=== PATIENT | female | born 1940 | race Caucasian/White ===

== ENCOUNTER → 2017-06-10 | Outpatient (CLI) | payer MEDICARE ==
--- NOTE | 2017-06-10 15:00 | XR ---
EXAMINATION TYPE: XR hand limited LT, XR wrist limited LT DATE OF EXAM: 06/10/2017 CLINICAL HISTORY: Third digit flexion deformity. TECHNIQUE: Frontal, lateral and oblique images of the left hand are obtained. Frontal, lateral and o blique images of the left wrist are obtained. COMPARISON: None. FINDINGS: There is no acute fracture/dislocation evident in the left hand or wrist. There is flexion deformity of the third digit at the interphalangeal joint with soft tissue swelling of the volar asp ect of the distal third digit over the proximal and distal phalanges. Joint space narrowing, subchond ral sclerosis, and few marginal osteophytes are seen at the distal interphalangeal joints and first c arpometacarpal joint. No erosion of the ulnar styloid is present. There is mild generalized osseous d emineralization. IMPRESSION: 1. There is no acute fracture or dislocation in the left hand or wrist. 2. Flexion deformity of the third distal interphalangeal joint. Although this may be degenerative, gi linda the volar soft tissue swelling volar plate injury and possible and MR could be performed for furt her evaluation.
== END | disposition home or self-care (01) ==
LOC: RADXRYALE 14:19
PROVIDERS: ATTEND Internal Medicine
DX: M21.242 Flexion deformity, left finger joints (principal); M79.89 Other specified soft tissue disorders

== ENCOUNTER 2020-01-21 01:09 | Emergency (ER) | payer MEDICARE, OTHER ==
[2020-01-21] MEDS ORDERED: MORPHINE SULFATE 4 MG/ML SYRINGE IM STA (01:46)
--- NOTE | 2020-01-21 01:55 | ED ---
Upper Extremity HPI - General Chief Complaint: Extremity Injury, Upper Stated Complaint: FALL, WRIST INJURY Time Seen by Provider: 01/21/20 01:40 Source: patient Mode of arrival: ambulatory Limitations: no limitations - History of Present Illness Initial Comments: This patient is a 79-year-old woman who presents to be evaluated for a left forearm injury. The patient states that she had been walking outside when she missed a step and fell onto her outstretched arm. She complains of pain and swelling to the distal left forearm. No weakness or numbness of the fingers. The patient denies other injuries except for having she states bruising her left knee. She was able to stand and walk following the fall. The patient didn't have any loss of consciousness. No head or neck pain. No chest, back, abdomen pain MD Complaint: Injury to:: left, forearm Onset/Timin -: hour(s) Other Extremity Injury: Forearm: Left Other Injuries: none Handedness: right Place: outdoors Improves With: immobilization Worsens With: movement of extremity Context: fall Associated Symptoms: denies other symptoms - Related Data Previous Rx's Medication Instructions Recorded Hydrocodone/Acetaminophen [Burnside 1 each PO Q6HR PRN #20 tab 01/21/20 5-325] Ibuprofen [Motrin] 600 mg PO Q8HR PRN #20 tab 01/21/20 traMADol HCl [Ultram] 50 mg PO Q6H PRN #20 tab 01/21/20 Allergies Allergy/AdvReac Type Severity Reaction Status Date / Time amoxicillin [From Augmentin] Allergy Rash/Hives Verified 01/21/20 01:22 clavulanic acid Allergy Rash/Hives Verified 01/21/20 01:22 [From Augmentin] codeine Allergy Cough Verified 01/21/20 01:22 Review of Systems ROS Statement: Those systems with pertinent positive or pertinent negative responses have been documented in the HPI. ROS Other: All systems not noted in ROS Statement are negative. Constitutional: Denies: weakness Eyes: Denies: vision change Respiratory: Denies: cough, dyspnea Cardiovascular: Denies: chest pain Gastrointestinal: Denies: abdominal pain Musculoskeletal: Reports: joint swelling, arthralgia Skin: Denies: lesions Neurological: Denies: headache, weakness, numbness Past Medical History Past Medical History: Cancer, Diabetes Mellitus, Hyperlipidemia, Hypertension Additional Past Medical History / Comment(s): Lung cancer lobectomy right side. History of Any Multi-Drug Resistant Organisms: None Reported Additional Past Surgical History / Comment(s): lobectomy. Past Psychological History: No Psychological Hx Reported Smoking Status: Former smoker Past Alcohol Use History: None Reported Past Drug Use History: None Reported General Exam Limitations: no limitations General appearance: alert, in no apparent distress Head exam: Present: atraumatic, normocephalic Eye exam: Present: normal appearance. Absent: scleral icterus, conjunctival injection Respiratory exam: Present: normal lung sounds bilaterally. Absent: respiratory distress, wheezes, rales, rhonchi, stridor, chest wall tenderness Cardiovascular Exam: Present: regular rate, normal rhythm, normal heart sounds, other (Radial pulses are symmetric and normal in strength. Good capillary refill.). Absent: systolic murmur, diastolic murmur, rubs, gallop GI/Abdominal exam: Present: soft. Absent: distended, tenderness, guarding, rebound Extremities exam: Present: normal inspection, normal capillary refill. Absent: pedal edema, calf tenderness Left Shoulder Exam: Present: normal inspection, full ROM Upper Arm exam: Present: normal inspection, full ROM Elbow exam: Present: normal inspection, full ROM Forearm Wrist exam: Present: tenderness, swelling. Absent: normal inspection, full ROM, abrasion, laceration, ecchymosis Hand Wrist exam: Present: normal inspection, full ROM. Absent: tenderness, swelling, abrasion Vascular: Present: normal capillary refill. Absent: pulse deficit radial art, pulse deficit ulnar art, pulse deficit brachial art Neurological exam: Present: alert. Absent: motor sensory deficit Skin exam: Present: warm, dry, intact, normal color. Absent: rash Course Vital Signs 01/21/20 01:15 Temperature 98 F Pulse Rate 112 H Respiratory 18 Rate Blood Pressure 170/70 O2 Sat by Pulse 100 Oximetry Disposition Clinical Impression: Forearm fractures, both bones, closed Disposition: HOME SELF-CARE Condition: Good Instructions (If sedation given, give patient instructions): Arm Fracture in Adults (ED) Prescriptions: Ibuprofen [Motrin] 600 mg PO Q8HR PRN #20 tab PRN Reason: Pain Hydrocodone/Acetaminophen [Burnside 5-325] 1 each PO Q6HR PRN #20 tab PRN Reason: Pain traMADol HCl [Ultram] 50 mg PO Q6H PRN #20 tab PRN Reason: Pain Is patient prescribed a controlled substance at d/c from ED?: Yes Referrals: Janett Caraballo MD [Primary Care Provider] - 1-2 days Henry Chowdhury DO [Medical Doctor] - 1-2 days
--- NOTE | 2020-01-21 02:21 | XR ---
EXAMINATION TYPE: XR forearm LT DATE OF EXAM: 01/21/2020 COMPARISON: None HISTORY: Fall. Pain. TECHNIQUE: 2 views FINDINGS: There is impacted comminuted fractures of the distal radius and ulna. There is some posteri or displacement of the distal fragments. There is no dislocation at the radiocarpal joint. Fracture l ine extends to the articular surface of the radius. The elbow joint appears intact. IMPRESSION: Impacted and comminuted intra-articular fractures of the distal radius and ulna as above. There is 50% posterior displacement of distal radius major fragment.
[2020-01-21] MEDS ORDERED: traMADol 50 MG STARTER PACK 3 TAB BTL PO STA (04:25)
[2020-01-21 04:46] VITALS: BP 150/70; PULSE 88; RESP 16; TEMP 98.1
== END 2020-01-21 04:46 | disposition home or self-care (01) ==
LOC: EC 01:09
DX: S52.572A Other intraarticular fracture of lower end of left radius, initial encounter for closed fracture (principal); S52.692A Other fracture of lower end of left ulna, initial encounter for closed fracture; Z87.891 Personal history of nicotine dependence; Z88.0 Allergy status to penicillin; Z88.5 Allergy status to narcotic agent; Z88.1 Allergy status to other antibiotic agents; Z85.118 Personal history of other malignant neoplasm of bronchus and lung; Z90.2 Acquired absence of lung [part of]; W10.9XXA Fall (on) (from) unspecified stairs and steps, initial encounter; Y92.009 Unspecified place in unspecified non-institutional (private) residence as the place of occurrence of the external cause
CPT/HCPCS: 73090; 99283; 29125; J2270

== ENCOUNTER → 2020-10-08 | Outpatient (CLI) | payer MEDICARE ==
--- NOTE | 2020-10-08 16:09 | XR ---
This x-ray and left RIBS HISTORY: Pain, trauma one week prior To review the chest and 4 views of left ribs Correlation prior chest x-ray 12/31/2014 Low bone mineralization may limit evaluation. There is no evident pneumothorax or pleural effusion. N o displaced rib fracture is evident. Mediastinal silhouette is stable. Aorta is dense. Surgical clips present in the right upper quadrant. There is thoracic spondylosis. IMPRESSION: No acute abnormality. Bone scan could be performed for increased sensitivity as indicated .
== END | disposition home or self-care (01) ==
LOC: RADXRYALE 14:54
PROVIDERS: ATTEND Internal Medicine
DX: R07.81 Pleurodynia (principal)

== ENCOUNTER 2021-10-11 17:26 | Inpatient (IN) | payer MEDICARE ==
[2021-10-11] MEDS ORDERED: SODIUM CHLORIDE 0.9% 1,000 ML IV STA (18:15)
[2021-10-11] MEDS ORDERED: SODIUM CHLORIDE 0.9% 500 ML 500 ML IV STA ×2 (18:15→20:57)
--- NOTE | 2021-10-11 18:19 | ED ---
SOB HPI - General Source: patient, family, RN notes reviewed, old records reviewed Mode of arrival: ambulatory Limitations: no limitations - History of Present Illness MD Complaint: shortness of breath <Sj Spear - Last Filed: 10/11/21 20:55> <Esau Daniels - Last Filed: 10/11/21 23:22> - General Chief Complaint: Shortness of Breath Stated Complaint: covid+/sent by urgent care Time Seen by Provider: 10/11/21 17:58 - History of Present Illness Initial Comments: 80-year-old female history of lung cancer with resection the right side ammonia other medical problems who presents with complaints of feeling weak for the past week also some diarrhea she states she's had a bit of this. No nausea no vomiting possibly decrease oral intake she states she tested positive for "19 today. She denies any fevers chills sweats other symptoms or modifying factors is generally feels weak and not well. (Sj Spear) - Related Data Home Medications Medication Instructions Recorded Confirmed Alendronate Sodium [Fosamax] 70 mg PO BLOOD 10/11/21 10/11/21 Ergocalciferol (Vitamin D2) 1,250 mcg PO QMONTHLY 10/11/21 10/11/21 [Drisdol (50,000 Iu)] Glimepiride [Amaryl] 1 mg PO Q48H 10/11/21 10/11/21 Losartan Potassium 100 mg PO HS 10/11/21 10/11/21 Pioglitazone [Actos] 45 mg PO DAILY 10/11/21 10/11/21 Simvastatin 40 mg PO DAILY 10/11/21 10/11/21 amLODIPine [Norvasc] 10 mg PO DAILY 10/11/21 10/11/21 Allergies Allergy/AdvReac Type Severity Reaction Status Date / Time amoxicillin [From Augmentin] Allergy Rash/Hives Verified 10/11/21 19:40 clavulanic acid Allergy Rash/Hives Verified 10/11/21 19:40 [From Augmentin] codeine Allergy Cough Verified 10/11/21 19:40 Review of Systems ROS Other: All systems not noted in ROS Statement are negative. <Sj Spear - Last Filed: 10/11/21 20:55> ROS Other: All systems not noted in ROS Statement are negative. <Esau Daniels - Last Filed: 10/11/21 23:22> ROS Statement: Those systems with pertinent positive or pertinent negative responses have been documented in the HPI. Past Medical History Past Medical History: Cancer, Diabetes Mellitus, Hyperlipidemia, Hypertension Additional Past Medical History / Comment(s): Lung cancer lobectomy right side. History of Any Multi-Drug Resistant Organisms: None Reported Additional Past Surgical History / Comment(s): lobectomy. Past Psychological History: No Psychological Hx Reported Smoking Status: Never smoker Past Alcohol Use History: None Reported Past Drug Use History: None Reported <Sj Spear - Last Filed: 10/11/21 20:55> General Exam Limitations: no limitations General appearance: alert, in no apparent distress Head exam: Present: atraumatic, normocephalic, normal inspection Eye exam: Present: normal appearance, PERRL, EOMI. Absent: scleral icterus, conjunctival injection, periorbital swelling ENT exam: Present: mucous membranes dry Neck exam: Present: normal inspection, full ROM, other (No stridor JVD or bruits). Absent: tenderness, meningismus, lymphadenopathy Respiratory exam: Present: normal lung sounds bilaterally. Absent: respiratory distress, wheezes, rales, rhonchi, stridor Cardiovascular Exam: Present: normal rhythm, bradycardia, normal heart sounds. Absent: systolic murmur, diastolic murmur, rubs, gallop, clicks GI/Abdominal exam: Present: soft, normal bowel sounds. Absent: distended, tenderness, guarding, rebound, rigid Extremities exam: Present: normal inspection, full ROM, normal capillary refill. Absent: tenderness, pedal edema, joint swelling, calf tenderness Back exam: Present: normal inspection Neurological exam: Present: alert, oriented X3, CN II-XII intact Psychiatric exam: Present: normal affect, normal mood Skin exam: Present: warm, dry, intact, normal color. Absent: rash <Sj Spear - Last Filed: 10/11/21 20:55> - General Exam Comments Initial Comments: This is a well-developed well-nourished awake alert oriented 3 female (RainerSj) Course <Sj Spear - Last Filed: 10/11/21 20:55> Vital Signs 10/11/21 10/11/21 10/11/21 17:39 19:28 20:09 Temperature 99 F Pulse Rate 58 L 101 H 99 Respiratory 26 H 18 18 Rate Blood Pressure 140/65 122/67 160/112 O2 Sat by Pulse 92 L 93 L 93 L Oximetry 10/11/21 22:29 Temperature Pulse Rate 86 Respiratory 18 Rate Blood Pressure 113/69 O2 Sat by Pulse 92 L Oximetry - Reevaluation(s) Reevaluation #1: 10/11/21 20:55 The patient's care is endorsed to Dr. Daniels at her shift change. CAT scan is pending for elevated d-dimer. (Sj Spear) Medical Decision Making - Lab Data Result diagrams: 10/11/21 19:16 10/11/21 19:16 - EKG Data -: EKG Interpreted by Ne EKG shows normal: sinus rhythm <Sj Spear - Last Filed: 10/11/21 20:55> - Lab Data Result diagrams: 10/11/21 19:16 10/11/21 19:16 <Esau Daniels - Last Filed: 10/11/21 23:22> - Medical Decision Making Receive this patient as a sign out pending the result of computed tomography scan to rule out PE. Dr. Spear has replaced patient's electrolytes. Discussed results with patient who states she would like to go home. She states there is no way she would like to stay in the hospital. She will return should any symptoms worsen should she develop dyspnea or new symptoms. (Esau Daniels) - Lab Data Lab Results 10/11/21 10/11/21 10/11/21 Range/Units 19:16 19:16 19:16 WBC 4.2 (3.8-10.6) k/uL RBC 3.68 L (3.80-5.40) m/uL Hgb 12.2 (11.4-16.0) gm/dL Hct 34.5 (34.0-46.0) % MCV 93.9 (80.0-100.0) fL MCH 33.2 (25.0-35.0) pg MCHC 35.3 (31.0-37.0) g/dL RDW 12.5 (11.5-15.5) % Plt Count 144 L (150-450) k/uL MPV 8.5 Neutrophils % 82 % Lymphocytes % 12 % Monocytes % 5 % Eosinophils % 1 % Basophils % 0 % Neutrophils # 3.4 (1.3-7.7) k/uL Lymphocytes # 0.5 L (1.0-4.8) k/uL Monocytes # 0.2 (0-1.0) k/uL Eosinophils # 0.0 (0-0.7) k/uL Basophils # 0.0 (0-0.2) k/uL PT 10.3 (9.0-12.0) sec INR 0.9 (<1.2) APTT 24.9 (22.0-30.0) sec D-Dimer 2.43 H (<0.60) mg/L FEU Sodium 130 L (137-145) mmol/L Potassium 3.2 L (3.5-5.1) mmol/L Chloride 100 (98-107) mmol/L Carbon Dioxide 20 L (22-30) mmol/L Anion Gap 10 mmol/L BUN 19 H (7-17) mg/dL Creatinine 1.09 H (0.52-1.04) mg/dL Est GFR (CKD-EPI)AfAm 56 (>60 ml/min/1.73 sqM) Est GFR (CKD-EPI)NonAf 49 (>60 ml/min/1.73 sqM) Glucose 138 H (74-99) mg/dL Plasma Lactic Acid Raimundo (0.7-2.0) mmol/L Calcium 8.6 (8.4-10.2) mg/dL Magnesium 1.5 L (1.6-2.3) mg/dL Total Bilirubin 0.6 (0.2-1.3) mg/dL AST 52 H (14-36) U/L ALT 24 (4-34) U/L Alkaline Phosphatase 51 (38-126) U/L Troponin I (0.000-0.034) ng/mL NT-Pro-B Natriuret Pep pg/mL Total Protein 5.8 L (6.3-8.2) g/dL Albumin 3.0 L (3.5-5.0) g/dL 10/11/21 10/11/21 10/11/21 Range/Units 19:16 19:16 19:16 WBC (3.8-10.6) k/uL RBC (3.80-5.40) m/uL Hgb (11.4-16.0) gm/dL Hct (34.0-46.0) % MCV (80.0-100.0) fL MCH (25.0-35.0) pg MCHC (31.0-37.0) g/dL RDW (11.5-15.5) % Plt Count (150-450) k/uL MPV Neutrophils % % Lymphocytes % % Monocytes % % Eosinophils % % Basophils % % Neutrophils # (1.3-7.7) k/uL Lymphocytes # (1.0-4.8) k/uL Monocytes # (0-1.0) k/uL Eosinophils # (0-0.7) k/uL Basophils # (0-0.2) k/uL PT (9.0-12.0) sec INR (<1.2) APTT (22.0-30.0) sec D-Dimer (<0.60) mg/L FEU Sodium (137-145) mmol/L Potassium (3.5-5.1) mmol/L Chloride (98-107) mmol/L Carbon Dioxide (22-30) mmol/L Anion Gap mmol/L BUN (7-17) mg/dL Creatinine (0.52-1.04) mg/dL Est GFR (CKD-EPI)AfAm (>60 ml/min/1.73 sqM) Est GFR (CKD-EPI)NonAf (>60 ml/min/1.73 sqM) Glucose (74-99) mg/dL Plasma Lactic Acid Raimundo 0.9 (0.7-2.0) mmol/L Calcium (8.4-10.2) mg/dL Magnesium (1.6-2.3) mg/dL Total Bilirubin (0.2-1.3) mg/dL AST (14-36) U/L ALT (4-34) U/L Alkaline Phosphatase (38-126) U/L Troponin I 0.020 (0.000-0.034) ng/mL NT-Pro-B Natriuret Pep 944 pg/mL Total Protein (6.3-8.2) g/dL Albumin (3.5-5.0) g/dL - EKG Data EKG Comments: Evidence of sinus and junctional rhythm rate 107 QRS duration 70 QT since QTC 320/427 minimal voltage criteria for LVH (Sj Spear) Disposition <Sj Spear - Last Filed: 10/11/21 20:55> Is patient prescribed a controlled substance at d/c from ED?: No <Esau Daniels - Last Filed: 10/11/21 23:22> Clinical Impression: COVID-19, Hypomagnesemia, Hypokalemia Disposition: HOME SELF-CARE Condition: Fair Instructions (If sedation given, give patient instructions): Coronavirus Disease 2019 (COVID-19) Referrals: Janett Caraballo MD [Primary Care Provider] - 1-2 days
--- NOTE | 2021-10-11 19:20 | XR ---
EXAMINATION TYPE: XR chest 2V DATE OF EXAM: 10/11/2021 COMPARISON: 10/08/2020 HISTORY: Short of breath TECHNIQUE: FINDINGS: There is coarse interstitial infiltrates throughout the lungs. There is slight elevated rig ht diaphragm. There is no heart failure. Heart size is normal. Thoracic aorta is atheromatous. IMPRESSION: There is pulmonary interstitial edema which is mostly new compared to recent exam. This c ould be acute pneumonia or heart failure.
[2021-10-11 19:40] LABS: Basophils % (A) 0 %; Eosinophils % (A) 1 %; HCT 34.5 % (34.0-46.0); HGB 12.2 gm/dL (11.4-16.0); Lymphocytes # (A) 0.5 k/uL (1.0-4.8); Lymphocytes % (A) 12 %; MCH 33.2 pg (25.0-35.0); MCHC 35.3 g/dL (31.0-37.0); MCV 93.9 fL (80.0-100.0); Mean Platelet Volume 8.5; Monocytes # (A) 0.2 k/uL (0-1.0); Monocytes % (A) 5 %; Neutrophils # (A) 3.4 k/uL (1.3-7.7); Neutrophils % (A) 82 %; Platelet Count 144 k/uL (150-450); RBC 3.68 m/uL (3.80-5.40); RDW 12.5 % (11.5-15.5); WBC 4.2 k/uL (3.8-10.6)
[2021-10-11 19:54] LABS: Calcium 8.6 mg/dL (8.4-10.2); Magnesium 1.5 mg/dL (1.6-2.3); Potassium 3.2 mmol/L (3.5-5.1); Total Bilirubin 0.6 mg/dL (0.2-1.3); Total Protein 5.8 g/dL (6.3-8.2)
[2021-10-11 20:09] LABS: INR 0.9 (<1.2); Partial Thromboplastin Time 24.9 sec (22.0-30.0); Prothrombin Time 10.3 sec (9.0-12.0)
[2021-10-11] MEDS ORDERED: MAGNESIUM SULFATE-D5W PMX 1 GM in DEXTROSE/WATER 1 100ML.BAG IVPB ONE (20:50)
[2021-10-11] MEDS ORDERED: POTASSIUM CHLORIDE ER 20 MEQ TAB.ER PO STA (20:50)
--- NOTE | 2021-10-11 21:42 | CT ---
EXAMINATION TYPE: CT angio chest DATE OF EXAM: 10/11/2021 COMPARISON: None HISTORY: SOB positive Covid Elevated ddimer. CT DLP: 238.8 mGycm Automated exposure control for dose reduction was used. CONTRAST: Performed with IV Contrast, patient injected with 65 mL of Isovue 370. Images obtained from the thoracic inlet to the diaphragm without IV contrast. There are Three-D postp rocessed images. There is patchy interstitial groundglass infiltrate throughout the lungs. There are a few mediastinal and bronchial lymph nodes up to 1.5 cm. There is normal contrast opacification of the pulmonary nadine mary. There are no filling defects. Thoracic aorta is intact. There is no aneurysm or dissection. Hea rt size is normal. There is no pericardial effusion. There is mild spurring in the thoracic spine. Sternum is intact. There is no compression fracture. IMPRESSION: No evidence of pulmonary embolism. Extensive groundglass interstitial pulmonary infiltrates consisten t with multifocal pneumonia.
[2021-10-12] MEDS ORDERED: IBUPROFEN 400 MG TAB PO PRN (00:41)
[2021-10-12] MEDS ORDERED: NALOXONE 0.4 MG/ML 1 ML VIAL IV PRN (00:41)
[2021-10-12] MEDS ORDERED: MORPHINE SULFATE 4 MG/ML SYRINGE IV STA (00:43)
[2021-10-12] MEDS ORDERED: dexAMETHasone 2 MG TAB PO STA (00:44)
[2021-10-12] MEDS: SODIUM CHLORIDE 0.9% 1,000 ML IV SCH ×2 (00:56→12:11)
[2021-10-12] MEDS: dexAMETHasone 2 MG TAB PO SCH ×2 (00:57→12:10)
[2021-10-12] MEDS: ENOXAPARIN 80 MG/0.8 ML SYRINGE SQ SCH ×2 (01:05→12:09)
[2021-10-12 03:57] LABS: Glucose,Whole Blood 176 mg/dL (75-99)
[2021-10-12 07:02] LABS: Glucose,Whole Blood 219 mg/dL (75-99)
[2021-10-12] MEDS ORDERED: FAMOTIDINE 20 MG TAB PO SCH (09:00)
[2021-10-12] MEDS: INSULIN ASPART (NovoLOG) 100 UNIT/ML VIAL SQ SCH ×4 (09:14→20:54)
[2021-10-12] MEDS: CHOLECALCIFEROL 125 MCG (5000 IU) TABLET PO SCH (09:15)
[2021-10-12] MEDS ORDERED: POTASSIUM CHLORIDE ER 20 MEQ TAB.ER PO STA (10:04)
[2021-10-12] MEDS ORDERED: NON FORMULARY DRUG (Alendronate Sodium [Fosamax] 70 MG Tablet) PO SCH (10:15)
[2021-10-12] MEDS ORDERED: ERGOCALCIFEROL 1,250 MCG (50,000 IU) CAPSULE PO SCH (10:15)
[2021-10-12 11:18] LABS: Glucose,Whole Blood 189 mg/dL (75-99)
[2021-10-12] MEDS: MAGNESIUM SULFATE-D5W PMX 1 GM in DEXTROSE/WATER 1 100ML.BAG IVPB SCH ×2 (12:09→14:54)
[2021-10-12] MEDS: CHOLECALCIFEROL 10 MCG (400 IU) TABLET PO SCH (12:11)
[2021-10-12] MEDS: ZINC SULFATE 220 MG CAP PO SCH (12:11)
[2021-10-12] MEDS: ASCORBIC ACID 500 MG TAB PO SCH ×2 (12:11→20:55)
[2021-10-12] MEDS ORDERED: FUROSEMIDE 10 MG/ML 4 ML VIAL IV STA (13:20)
--- NOTE | 2021-10-12 13:34 | P.HPIM ---
History of Present Illness Patient is 80-year-old the female came in with compensative shortness of breath was diagnosed with Covid 19 today. Patient's symptoms started about a week ago cough shortness of breath. Patient doesn't have any fever. Patient is also bit hyponatremic secondary to hyponatremia, patient denied any nausea vomiting diarrhea patient is not vaccinated for Covid 19.. Patient has an elevated d- dimer had a CT angios the chest which did not show any pulmonary embolism but did show diffuse infiltrates consistent with Covid 19. Patient is presently on a liters of oxygen. REVIEW OF SYSTEMS: CONSTITUTIONAL: No fever, no malaise, no fatigue. HEENT: No recent visual problems or hearing problems. Denied any sore throat. CARDIOVASCULAR: No chest pain, orthopnea, PND, no palpitations, no syncope. PULMONARY as mentioned in HPI GASTROINTESTINAL: No diarrhea, no nausea, no vomiting, no abdominal pain. NEUROLOGICAL: No headaches, no weakness, no numbness. HEMATOLOGICAL: Denies any bleeding or petechiae. GENITOURINARY: Denies any burning micturition, frequency, or urgency. MUSCULOSKELETAL/RHEUMATOLOGICAL: Denies any joint pain, swelling, or any muscle pain. ENDOCRINE: Denies any polyuria or polydipsia. The rest of the 14-point review of systems is negative. PHYSICAL EXAMINATION: GENERAL: The patient is alert and oriented x3, not in any acute distress. Well developed, well nourished. HEENT: Pupils are round and equally reacting to light. EOMI. No scleral icterus. No conjunctival pallor. Normocephalic, atraumatic. No pharyngeal erythema. No thyromegaly. CARDIOVASCULAR: S1 and S2 present. No murmurs, rubs, or gallops. PULMONARY: Chest is clear to auscultation, no wheezing or crackles. ABDOMEN: Soft, nontender, nondistended, normoactive bowel sounds. No palpable organomegaly. MUSCULOSKELETAL: No joint swelling or deformity. EXTREMITIES: No cyanosis, clubbing, or pedal edema. NEUROLOGICAL: Gross neurological examination did not reveal any focal deficits. SKIN: No rashes. Assessment and plan -Acute hypoxic respiratory failure secondary to Covid 19. Patient was started on Decadron will not qualify for Remdesivir, patient will be continued on code vitamins Lovenox twice a day considering elevated d-dimer in spite of no PE. -Type 2 diabetes mellitus blood sugars are expected to go patient was instructed along with the her home regimen. Hypovolemic hyponatremia: Patient was started on IV fluids -Hypomagnesemia and hypokalemia will be replaced -Hypertension DVT prophylaxis: Lovenox as mentioned above Past Medical History Past Medical History: Cancer, Diabetes Mellitus, Hyperlipidemia, Hypertension, Osteoarthritis (OA), Renal Disease Additional Past Medical History / Comment(s): Lung cancer lobectomy right side; CKD History of Any Multi-Drug Resistant Organisms: None Reported Additional Past Surgical History / Comment(s): lobectomy. Past Anesthesia/Blood Transfusion Reactions: No Reported Reaction Smoking Status: Former smoker Medications and Allergies Home Medications Medication Instructions Recorded Confirmed Type Alendronate Sodium [Fosamax] 70 mg PO BLOOD 10/11/21 10/11/21 History Ergocalciferol (Vitamin D2) 1,250 mcg PO QMONTHLY 10/11/21 10/11/21 History [Drisdol (50,000 Iu)] Glimepiride [Amaryl] 1 mg PO Q48H 10/11/21 10/11/21 History Losartan Potassium 100 mg PO HS 10/11/21 10/11/21 History Pioglitazone [Actos] 45 mg PO DAILY 10/11/21 10/11/21 History Simvastatin 40 mg PO DAILY 10/11/21 10/11/21 History amLODIPine [Norvasc] 10 mg PO DAILY 10/11/21 10/11/21 History Allergies Allergy/AdvReac Type Severity Reaction Status Date / Time amoxicillin [From Augmentin] Allergy Rash/Hives Verified 10/11/21 19:40 clavulanic acid Allergy Rash/Hives Verified 10/11/21 19:40 [From Augmentin] codeine Allergy Cough Verified 10/11/21 19:40 Physical Exam Vitals: Vital Signs Temp Pulse Pulse Resp BP BP Pulse Ox 10/12/21 08:43 98.1 F 47 L 18 145/66 91 L 10/12/21 05:42 98.2 F 63 20 134/62 91 L 10/12/21 04:20 90 20 10/12/21 02:16 98.7 F 90 20 133/59 96 10/12/21 01:07 101 H 18 132/74 92 L 10/11/21 22:29 86 18 113/69 92 L 10/11/21 20:09 99 18 160/112 93 L 10/11/21 19:28 101 H 18 122/67 93 L 10/11/21 17:39 99 F 58 L 26 H 140/65 92 L Intake and Output 10/11/21 10/12/21 10/12/21 22:59 06:59 14:59 Other: Voiding Method Bedside Commode Bedside Commode # Voids 2 Weight 77.111 kg 77.111 kg 77.111 kg Results CBC & Chem 7: 10/11/21 19:16 10/11/21 19:16 Labs: Abnormal Lab Results - Last 24 Hours (Table) 10/11/21 10/11/21 10/11/21 Range/Units 19:16 19:16 19:16 RBC 3.68 L (3.80-5.40) m/uL Plt Count 144 L (150-450) k/uL Lymphocytes # 0.5 L (1.0-4.8) k/uL D-Dimer 2.43 H (<0.60) mg/L FEU Sodium 130 L (137-145) mmol/L Potassium 3.2 L (3.5-5.1) mmol/L Carbon Dioxide 20 L (22-30) mmol/L BUN 19 H (7-17) mg/dL Creatinine 1.09 H (0.52-1.04) mg/dL Glucose 138 H (74-99) mg/dL POC Glucose (mg/dL) (75-99) mg/dL Magnesium 1.5 L (1.6-2.3) mg/dL AST 52 H (14-36) U/L Total Protein 5.8 L (6.3-8.2) g/dL Albumin 3.0 L (3.5-5.0) g/dL 10/12/21 10/12/21 10/12/21 Range/Units 03:37 07:00 11:12 RBC (3.80-5.40) m/uL Plt Count (150-450) k/uL Lymphocytes # (1.0-4.8) k/uL D-Dimer (<0.60) mg/L FEU Sodium (137-145) mmol/L Potassium (3.5-5.1) mmol/L Carbon Dioxide (22-30) mmol/L BUN (7-17) mg/dL Creatinine (0.52-1.04) mg/dL Glucose (74-99) mg/dL POC Glucose (mg/dL) 176 H 219 H 189 H (75-99) mg/dL Magnesium (1.6-2.3) mg/dL AST (14-36) U/L Total Protein (6.3-8.2) g/dL Albumin (3.5-5.0) g/dL Thrombosis Risk Factor Assmnt - Choose All That Apply Each Risk Factor Represents 3 Points: Age 75 years or older Thrombosis Risk Factor Assessment Total Risk Factor Score: 3 Thrombosis Risk Factor Assessment Level: Moderate Risk
[2021-10-12] MEDS: ACETAMINOPHEN TAB 325 MG TAB PO PRN ×2 (15:25→20:55)
--- NOTE | 2021-10-12 15:48 | P.CNPUL ---
History of Present Illness Consult date: 10/12/21 Requesting physician: Dianne Robertson Reason for consult: dyspnea, hypoxemia, pneumonia (Dyspnea, cough, hypoxia), abnormal CXR/CT Chief complaint: Dyspnea, cough History of present illness: This is a 81-year-old white female patient of Dr. Janett Caraballo, with past medical history of non-small cell lung cancer, with right upper lobectomy 5 years ago at the [facility] and [facility] which was done by Dr. Salvador, previous history of smoking which has been in remission for last 12 years, but patient does carry [id number] smoking history, hypertension, diabetes mellitus type 2, hyperlipidemia. Patient presented to the emergency department on 10/11/2021 for evaluation of weakness for the past 2 weeks, cough, diarrhea, she denied shortness of breath. She reported no nausea or vomiting, she reported decreased oral intake. She denied any fever or chills. She is not vaccinated against COVID-19, she states she lives by herself and she is not aware of a COVID-19 positive contact. Her chest x-ray showed pulmonary interstitial edema. Patient tested positive for COVID-19 in the ER, the rest of her blood work revealed white blood cell count of 4.2, hemoglobin of 12.2, d- dimer of 2.43, sodium of 1:30, potassium is 3.2, chloride is 100, CO2 is 20, BUN of 19 creatinine 1.09, lactic acid was 0.9, AST was 52, ALT was 24, alk phos was 51, troponin was 0.020, proBNP was 944. CT angiogram was completed showing no evidence of pulmonary embolism, he did show extensive groundglass interstitial pulmonary infiltrates consistent with multifocal pneumonia. EKG showed sinus rhythm with PACs. Patient was hypoxic in the ED, and she was placed on supplemental oxygen, currently is up to 8 L her pulse ox is 92%, she is afebrile, hemodynamically she is stable, she was started on Decadron, prophylactic Lovenox 40 mg twice daily, she was given IV fluid boluses in the ED with a 1 L, and her IV fluids were infusing at 130 ML per hour, on clinical exam she appears to be fluid overloaded, with diffuse crackles, and chest x-ray findings are also suggesting possibility of fluid overload and CHF with unknown EF. Review of Systems All systems: negative Constitutional: Reports anorexia, Reports weakness, Denies chills, Denies fever Eyes: denies blurred vision, denies pain Ears, nose, mouth and throat: Denies headache, Denies sore throat Cardiovascular: Denies chest pain, Denies shortness of breath Respiratory: Reports cough, Reports dyspnea Gastrointestinal: Denies abdominal pain, Denies diarrhea, Denies nausea, Denies vomiting Genitourinary: Denies dysuria, Denies hematuria Musculoskeletal: Denies myalgias Integumentary: Denies pruritus, Denies rash Neurological: Denies numbness, Denies weakness Psychiatric: Denies anxiety, Denies depression Endocrine: Denies fatigue, Denies weight change Past Medical History Past Medical History: Cancer, Diabetes Mellitus, Hyperlipidemia, Hypertension, Osteoarthritis (OA), Renal Disease Additional Past Medical History / Comment(s): Lung cancer lobectomy right side; CKD History of Any Multi-Drug Resistant Organisms: None Reported Additional Past Surgical History / Comment(s): lobectomy. Past Anesthesia/Blood Transfusion Reactions: No Reported Reaction Smoking Status: Former smoker Medications and Allergies Home Medications Medication Instructions Recorded Confirmed Type Alendronate Sodium [Fosamax] 70 mg PO BLOOD 10/11/21 10/11/21 History Ergocalciferol (Vitamin D2) 1,250 mcg PO QMONTHLY 10/11/21 10/11/21 History [Drisdol (50,000 Iu)] Glimepiride [Amaryl] 1 mg PO Q48H 10/11/21 10/11/21 History Losartan Potassium 100 mg PO HS 10/11/21 10/11/21 History Pioglitazone [Actos] 45 mg PO DAILY 10/11/21 10/11/21 History Simvastatin 40 mg PO DAILY 10/11/21 10/11/21 History amLODIPine [Norvasc] 10 mg PO DAILY 10/11/21 10/11/21 History Allergies Allergy/AdvReac Type Severity Reaction Status Date / Time amoxicillin [From Augmentin] Allergy Rash/Hives Verified 10/11/21 19:40 clavulanic acid Allergy Rash/Hives Verified 10/11/21 19:40 [From Augmentin] codeine Allergy Cough Verified 10/11/21 19:40 Physical Exam Vitals: Vital Signs Temp Pulse Pulse Resp BP BP Pulse Ox 10/12/21 13:46 97.2 F L 60 18 149/88 92 L 10/12/21 08:43 98.1 F 47 L 18 145/66 91 L 10/12/21 05:42 98.2 F 63 20 134/62 91 L 10/12/21 04:20 90 20 10/12/21 02:16 98.7 F 90 20 133/59 96 10/12/21 01:07 101 H 18 132/74 92 L 10/11/21 22:29 86 18 113/69 92 L 10/11/21 20:09 99 18 160/112 93 L 10/11/21 19:28 101 H 18 122/67 93 L 10/11/21 17:39 99 F 58 L 26 H 140/65 92 L Intake and Output 10/12/21 10/12/21 10/12/21 06:59 14:59 22:59 Other: Voiding Method Bedside Commode Bedside Commode # Voids 2 Weight 77.111 kg 77.111 kg GENERAL EXAM: Alert, pleasant, 81-year-old white female, comfortable in no apparent distress. HEAD: Normocephalic/atraumatic. EYES: Normal reaction of pupils, equal size. Conjunctiva pink, sclera white. NOSE: Clear with pink turbinates. THROAT: No erythema or exudates. NECK: No masses, no JVD, no thyroid enlargement, no adenopathy. CHEST: No chest wall deformity. Symmetrical expansion. LUNGS: Equal air entry with diffuse crackles CVS: Regular rate and rhythm, normal S1 and S2, no gallops, no murmurs, no rubs ABDOMEN: Soft, nontender. No hepatosplenomegaly, normal bowel sounds, no guarding or rigidity. EXTREMITIES: No clubbing, swelling in upper and lower extremities no cyanosis, 2+ pulses and upper and lower extremities. MUSCULOSKELETAL: Muscle strength and tone normal. SPINE: No scoliosis or deformity SKIN: No rashes CENTRAL NERVOUS SYSTEM: Alert and oriented -3. No focal deficits, tone is normal in all 4 extremities. PSYCHIATRIC: Alert and oriented -3. Appropriate affect. Intact judgment and insight. Results - Laboratory Findings CBC and BMP: 10/11/21 19:16 10/11/21 19:16 PT/INR, D-dimer PT 10.3 sec (9.0-12.0) 10/11/21 19:16 INR 0.9 (<1.2) 10/11/21 19:16 D-Dimer 2.43 mg/L FEU (<0.60) H 10/11/21 19:16 Abnormal lab findings: Abnormal Labs 10/11/21 10/11/21 10/11/21 19:16 19:16 19:16 RBC 3.68 L Plt Count 144 L Lymphocytes # 0.5 L D-Dimer 2.43 H Sodium 130 L Potassium 3.2 L Carbon Dioxide 20 L BUN 19 H Creatinine 1.09 H Glucose 138 H POC Glucose (mg/dL) Magnesium 1.5 L AST 52 H Total Protein 5.8 L Albumin 3.0 L 10/12/21 10/12/21 10/12/21 03:37 07:00 11:12 RBC Plt Count Lymphocytes # D-Dimer Sodium Potassium Carbon Dioxide BUN Creatinine Glucose POC Glucose (mg/dL) 176 H 219 H 189 H Magnesium AST Total Protein Albumin - Diagnostic Findings Chest x-ray: report reviewed, image reviewed CT scan - chest: report reviewed, image reviewed Assessment and Plan Plan: Assessment: #1. Acute hypoxic respiratory failure related to acute COVID-19 related pneumonia and possibility of fluid overload, mild CHF is not completely excluded. Patient presented to the emergency department on 10/11/2021 with 2 week history of weakness, minor fevers, cough but no shortness of breath. Tested positive for COVID-19 in the ED on 10/11/2021. She was outside the window for Remdesivir due to length of symptoms. Did not receive outpatient treatment, she is not vaccinated against COVID-19 #2. History of non-small cell lung cancer, with reported history of right upper lobectomy at the [facility] and [place], [place] in in 2016 #3. Former smoker, carries [id number] smoking history, in remission for last 12 years #4. Hypertension #5. Diabetes mellitus type 2 #6. Hyperlipidemia #7. Hyponatremia related to poor oral intake and dehydration #8. Elevated d-dimer without CT evidence of pulmonary embolism Plan: Patient is outside the window for Remdesivir Continue Decadron once daily Continue prophylactic Lovenox Chest x-ray CTA chest has been reviewed Labs have been reviewed We'll obtain follow-up d-dimer, and inflammatory markers Clinically patient looks fluid overloaded, we will give one-time dose of Lasix Continue multivitamins May need to inquire about patient's history of lung cancer and with her recent follow-up was with her thoracic surgeon For now continue supportive treatment Overall prognosis is guarded I performed a history & physical examination of the patient and discussed their management with my nurse practitioner, Corrie Baca. I reviewed the nurse practitioner's note and agree with the documented findings and plan of care. Lung sounds are positive for diffuse crackles throughout the lung ross. The findings and the impression was discussed with the patient. I attest to the documentation by the nurse practitioner. Time with Patient: Greater than 30
[2021-10-12 16:37] LABS: Glucose,Whole Blood 250 mg/dL (75-99)
--- NOTE | 2021-10-12 20:11 | US ---
EXAMINATION TYPE: US venous doppler duplex LE DATE OF EXAM: 10/12/2021 7:30 PM COMPARISON: CLINICAL HISTORY: elevated d-dimer. Covid, elevated ddimer, no redness or swelling SIDE PERFORMED: Bilateral TECHNIQUE: The lower extremity deep venous system is examined utilizing real time linear array sonog tashi with graded compression, doppler sonography and color-flow sonography. VESSELS IMAGED: Common Femoral Vein Deep Femoral Vein Greater Saphenous Vein * Femoral Vein Popliteal Vein Small Saphenous Vein * Proximal Calf Veins (* superficial vessels) Right Leg: Negative for DVT Left Leg: Negative for DVT IMPRESSION: No evidence of deep vein thrombosis in both legs.
[2021-10-12 20:19] LABS: Glucose,Whole Blood 273 mg/dL (75-99)
[2021-10-12] MEDS: LOSARTAN 50 MG TAB PO SCH (20:55)
[2021-10-12] MEDS: ENOXAPARIN 40 MG/0.4 ML SYRINGE SQ SCH (20:55)
[2021-10-13] MEDS: SODIUM CHLORIDE 0.9% 1,000 ML IV SCH (00:58)
[2021-10-13] MEDS: dexAMETHasone 2 MG TAB PO SCH ×2 (00:58→12:36)
--- NOTE | 2021-10-13 06:39 | XR ---
EXAMINATION TYPE: XR chest 1V portable DATE OF EXAM: 10/13/2021 CLINICAL HISTORY: Difficulty breathing and COVID progress study. TECHNIQUE: Single AP portable upright view of the chest is obtained. COMPARISON: Chest x-ray and CTA chest from 2 days earlier FINDINGS: Increasing bilateral multifocal and confluent opacities redemonstrated on background chron ic emphysematous change. Mild cardiomegaly with atherosclerotic thoracic aorta is present. Cholecyste ctomy clips are redemonstrated. Osseous structures are demineralized. IMPRESSION: Worsening bilateral multifocal and confluent opacities consistent with covid-19 infection progression.
[2021-10-13 06:59] LABS: Glucose,Whole Blood 287 mg/dL (75-99)
[2021-10-13] MEDS: ENOXAPARIN 40 MG/0.4 ML SYRINGE SQ SCH (08:33)
[2021-10-13] MEDS: amLODIPine 10 MG TAB PO SCH (08:33)
[2021-10-13] MEDS: ZINC SULFATE 220 MG CAP PO SCH (08:33)
[2021-10-13] MEDS: FAMOTIDINE 20 MG TAB PO SCH (08:34)
[2021-10-13] MEDS: ATORVASTATIN 20 MG TAB PO SCH (08:34)
[2021-10-13] MEDS: ASCORBIC ACID 500 MG TAB PO SCH ×2 (08:34→20:11)
[2021-10-13] MEDS: CHOLECALCIFEROL 125 MCG (5000 IU) TABLET PO SCH (08:35)
[2021-10-13] MEDS: CHOLECALCIFEROL 10 MCG (400 IU) TABLET PO SCH (08:35)
[2021-10-13] MEDS: GLIMEPIRIDE 1 MG TAB PO SCH (08:35)
[2021-10-13] MEDS: INSULIN ASPART (NovoLOG) 100 UNIT/ML VIAL SQ SCH ×4 (08:36→20:12)
[2021-10-13] MEDS: ACETAMINOPHEN TAB 325 MG TAB PO PRN ×2 (08:51→18:08)
[2021-10-13] MEDS ORDERED: ENOXAPARIN 40 MG/0.4 ML SYRINGE SQ SCH (09:00)
[2021-10-13 09:51] LABS: African American GFR (CKD) 62.1 (60.0-200.0); BUN/Creat Ratio 16.9 Ratio (12.00-20.00); Blood Urea Nitrogen 16.9 mg/dL (9.0-27.0); C Reactive Protein 4.3 mg/dL (0.00-0.80); Calcium 7.9 mg/dL (8.7-10.3); Non-African American GFR(CKD) 53.5 (60.0-200.0)
[2021-10-13 11:36] LABS: Glucose,Whole Blood 250 mg/dL (75-99)
[2021-10-13] MEDS: ALPRAZolam 0.25 MG TAB PO PRN ×2 (12:36→21:21)
[2021-10-13] MEDS: PIOGLITAZONE 45 MG TAB PO SCH (13:38)
--- NOTE | 2021-10-13 15:36 | P.PN ---
Subjective Progress Note Date: 10/13/21 Principal diagnosis: Respiratory failure. This is a 81-year-old white female patient of Dr. Janett Caraballo, with past medical history of non-small cell lung cancer, with right upper lobectomy 5 years ago at the [facility] and [facility] which was done by Dr. Salvador, previous history of smoking which has been in remission for last 12 years, but patient does carry [id number] smoking history, hypertension, diabetes mellitus type 2, hyperlipidemia. Patient presented to the emergency department on 10/11/2021 for evaluation of weakness for the past 2 weeks, cough, diarrhea, she denied shortness of breath. She reported no nausea or vomiting, she reported decreased oral intake. She denied any fever or chills. She is not vaccinated against COVID-19, she states she lives by herself and she is not aware of a COVID-19 positive contact. Her chest x-ray showed pulmonary interstitial edema. Patient tested positive for COVID-19 in the ER, the rest of her blood work revealed white blood cell count of 4.2, hemoglobin of 12.2, d- dimer of 2.43, sodium of 1:30, potassium is 3.2, chloride is 100, CO2 is 20, BUN of 19 creatinine 1.09, lactic acid was 0.9, AST was 52, ALT was 24, alk phos was 51, troponin was 0.020, proBNP was 944. CT angiogram was completed showing no evidence of pulmonary embolism, he did show extensive groundglass interstitial pulmonary infiltrates consistent with multifocal pneumonia. EKG showed sinus rhythm with PACs. Patient was hypoxic in the ED, and she was placed on supplemental oxygen, currently is up to 8 L her pulse ox is 92%, she is afebrile, hemodynamically she is stable, she was started on Decadron, prophylactic Lovenox 40 mg twice daily, she was given IV fluid boluses in the ED with a 1 L, and her IV fluids were infusing at 130 ML per hour, on clinical exam she appears to be fluid overloaded, with diffuse crackles, and chest x-ray findings are also suggesting possibility of fluid overload and CHF with unknown EF. Progress note dated 03/13/2022. This is a 81-year-old female admitted with a diagnosis of acute hypoxemic respiratory failure secondary to coronavirus associated pneumonia. The patient also has a history of non-small cell lung cancer, status post right upper lobectomy, 2016, previous tobacco use, hypertension, diabetes, hyperlipidemia, hyponatremia, and elevated d-dimer without CT evidence of pulmonary embolism. Unfortunately, her respiratory status has worsened although she states that she feels better. She's currently on 15 L high flow nasal O2, and a nonrebreather mask. She is a DO NOT RESUSCITATE patient. She is seen in room 484. She's getting saline at KVO. D-dimer was 1.46. Sodium 134, potassium 5, chlorides 106, CO2 15, anion gap 13, BUN 17, creatinine 1. C-reactive protein is 4.3. LDH is 775. Chest x-ray shows diffuse bilateral infiltrates. CT angiogram and Doppler studies of the lower extremities were also evaluated. The patient was seen in consultation yesterday, October 12. Objective - Vital Signs Vital signs: Vital Signs Temp 96.7 F L 10/13/21 13:33 Pulse 89 10/13/21 13:33 Resp 18 10/13/21 13:33 BP 147/71 10/13/21 13:33 Pulse Ox 97 10/13/21 13:33 Intake & Output 10/12/21 10/13/21 10/13/21 18:59 06:59 18:59 Weight 77.111 kg Other: Voiding Method Bedside Commode Bedside Commode # Voids 10 8 - Exam No acute distress, oriented 3. Currently, the patient's on 15 L high flow nasal O2, and a nonrebreather mass. Saturations are 97%. HEENT examination is grossly unremarkable. Neck supple. Full range of motion. No adenopathy thyromegaly or neck vein distention. Cardiovascular examination reveals regular rhythm rate. S1-S2 normal. No S3 or S4. No discernible murmur noted. Heart sounds are distant. Heart rate 89 bpm. Lungs reveal diffuse bilateral rhonchi and bilateral crackles. No wheezes. Breath sounds equal bilaterally. Abdomen soft bowel sounds are heard. No masses or tenderness. Extremities are intact. No cyanosis clubbing or edema. Skin is without rash or lesion. Neurologic examination is brief but nonfocal. - Labs CBC & Chem 7: 10/11/21 19:16 10/13/21 05:15 Labs: Abnormal Lab Results - Last 24 Hours (Table) 10/12/21 10/12/21 10/13/21 Range/Units 16:34 20:17 05:15 D-Dimer 1.46 H (<0.60) mg/L FEU Sodium (135-145) mmol/L Carbon Dioxide (20.0-27.5) mmol/L Est GFR (CKD-EPI)NonAf (60.0-200.0) Glucose (70-110) mg/dL POC Glucose (mg/dL) 250 H 273 H (75-99) mg/dL Calcium (8.7-10.3) mg/dL Lactate Dehydrogenase (120-246) U/L C-Reactive Protein (0.00-0.80) mg/dL 10/13/21 10/13/21 10/13/21 Range/Units 05:15 06:48 11:34 D-Dimer (<0.60) mg/L FEU Sodium 134 L (135-145) mmol/L Carbon Dioxide 15.0 L (20.0-27.5) mmol/L Est GFR (CKD-EPI)NonAf 53.5 L (60.0-200.0) Glucose 263 H (70-110) mg/dL POC Glucose (mg/dL) 287 H 250 H (75-99) mg/dL Calcium 7.9 L (8.7-10.3) mg/dL Lactate Dehydrogenase 775 H (120-246) U/L C-Reactive Protein 4.30 H (0.00-0.80) mg/dL Microbiology - Last 24 Hours (Table) 10/11/21 19:07 Blood Culture - Preliminary Blood No Growth after 24 hours 10/11/21 19:16 Blood Culture - Preliminary Blood No Growth after 24 hours Assessment and Plan Assessment: Acute hypoxemic respiratory failure secondary to coronavirus associated pneumonia. History of non-small cell lung cancer, status post right upper lobectomy, 2016. Previous history of 20 years of tobacco use. History of hypertension. Type 2 diabetes mellitus. History of hyperlipidemia. Hyponatremia, secondary to dehydration. No evidence of pulmonary embolism or lower extremity DVTs, on CT angiogram/lower extremity Dopplers. Plan: Plan dated 10/13/2021. Currently, the patient is a DO NOT RESUSCITATE patient. Today, we talked about AIRVO, and BiPAP with the patient. The nurse was at the bedside. The patient would not want to be intubated and mechanically ventilated. Currently, the patient's on vitamin C, vitamin D3, and zinc. In addition, the patient is receiving Decadron, daily, and Lovenox. Additional recommendations and suggestions are forthcoming. Prognosis is guarded. We will continue to follow make recommendations where appropriate. Time with Patient: Less than 30
[2021-10-13 16:30] LABS: Glucose,Whole Blood 174 mg/dL (75-99)
[2021-10-13 20:03] LABS: Glucose,Whole Blood 278 mg/dL (75-99)
[2021-10-13] MEDS: LOSARTAN 50 MG TAB PO SCH (20:12)
[2021-10-13] MEDS: INSULIN DETEMIR (LEVEMIR) 100 UNIT/ML SYR SQ SCH (20:12)
--- NOTE | 2021-10-14 00:55 | P.PN ---
Subjective Progress Note Date: 10/13/21 Patient is 80-year-old the female came in with compensative shortness of breath was diagnosed with Covid 19 today. Patient's symptoms started about a week ago cough shortness of breath. Patient doesn't have any fever. Patient is also bit hyponatremic secondary to hyponatremia, patient denied any nausea vomiting diarrhea patient is not vaccinated for Covid 19.. Patient has an elevated d- dimer had a CT angios the chest which did not show any pulmonary embolism but did show diffuse infiltrates consistent with Covid 19. Patient is presently on a liters of oxygen. 10/13/2021 Patient is seen and evaluated in follow-up this morning continues to be extremely short of breath requiring 15 L and also nonrebreather and is experiencing extreme anxiety and asking to remove the non-rebreather although oxygen saturations drop quickly and 02 saturations in the low 80's. Discussed at length about code status and patient wishes to be no code and adamant about not being on a mechanical ventilator. Patient being followed by pulmonary and patient is maintained on vitamin and zinc supplements along with sub q lovenox bid and oral dexamethasone. Lab: D-dimer is 1.46, sodium is 134, potassium 5.0, BUN 16.9, creatinine is 1.0, LDH is 775, CRP is 4.3 calcium is 7.9 Review of systems: Constitutional: No reports of fatigue, fever, or chills, reports anxiety Cardiovascular: No reports of chest pain or palpitations Respiratory: reports of worsening shortness of breath GI: No reports of nausea, vomiting, or diarrhea : No reports of dysuria or retention Neurovascular: No reports of weakness or numbness All medications have been reviewed Active Medications Acetaminophen (Acetaminophen Tab 325 Mg Tab) 650 mg PO Q6HR PRN PRN Reason: Mild Pain or Fever > 100.5 Last Admin: 10/13/21 08:51 Dose: 650 mg Documented by: Alprazolam (Alprazolam 0.25 Mg Tab) 0.25 mg PO BID PRN PRN Reason: Anxiety Last Admin: 10/13/21 12:36 Dose: 0.25 mg Documented by: Amlodipine Besylate (Amlodipine 10 Mg Tab) 10 mg PO DAILY [facility] Last Admin: 10/13/21 08:33 Dose: 10 mg Documented by: Ascorbic Acid (Ascorbic Acid 500 Mg Tab) 500 mg PO BID [facility] Last Admin: 10/13/21 08:34 Dose: 500 mg Documented by: Atorvastatin Calcium (Atorvastatin 20 Mg Tab) 20 mg PO DAILY [facility] Last Admin: 10/13/21 08:34 Dose: 20 mg Documented by: Cholecalciferol (Cholecalciferol 125 Mcg (5000 Iu) Tablet) 125 mcg PO DAILY [facility] Last Admin: 10/13/21 08:35 Dose: 125 mcg Documented by: Cholecalciferol (Cholecalciferol 10 Mcg (400 Iu) Tablet) 10 mcg PO DAILY [facility] Last Admin: 10/13/21 08:35 Dose: 10 mcg Documented by: Dexamethasone (Dexamethasone 2 Mg Tab) 6 mg PO Q12H [facility] Last Admin: 10/13/21 12:36 Dose: 6 mg Documented by: Enoxaparin Sodium (Enoxaparin 40 Mg/0.4 Ml Syringe) 40 mg SQ BID [facility] Last Admin: 10/13/21 08:33 Dose: 40 mg Documented by: Famotidine (Famotidine 20 Mg Tab) 20 mg PO DAILY [facility] Last Admin: 10/13/21 08:34 Dose: 20 mg Documented by: Glimepiride (Glimepiride 1 Mg Tab) 1 mg PO Q48H [facility] Last Admin: 10/13/21 08:35 Dose: 1 mg Documented by: Sodium Chloride (Saline 0.9%) 1,000 mls @ 20 mls/hr IV .Q24H [facility] Last Admin: 10/13/21 00:58 Dose: 20 mls/hr Documented by: Insulin Aspart (Insulin Aspart (Novolog) 100 Unit/Ml Vial) 0 unit SQ [facility]; Protocol Last Admin: 10/13/21 12:33 Dose: 4 unit Documented by: Insulin Detemir (Insulin Detemir (Levemir) 100 Unit/Ml Syr) 10 unit SQ HS [facility] Losartan Potassium (Losartan 50 Mg Tab) 100 mg PO HS [facility] Last Admin: 10/12/21 20:55 Dose: 100 mg Documented by: Naloxone HCl (Naloxone 0.4 Mg/Ml 1 Ml Vial) 0.2 mg IV Q2M PRN PRN Reason: Opioid Reversal Non-Formulary Medication (Alendronate Sodium [Fosamax]) 70 mg PO BLOOD [facility] Last Admin: 10/12/21 12:01 Dose: Not Given Documented by: Pioglitazone HCl (Pioglitazone 45 Mg Tab) 45 mg PO DAILY [facility] Zinc Sulfate (Zinc Sulfate 220 Mg Cap) 220 mg PO DAILY [facility] Last Admin: 10/13/21 08:33 Dose: 220 mg Documented by: PHYSICAL EXAMINATION: GENERAL: The patient is alert and oriented x3, in acute respiratory distress on 15 L HF NC and also being placed on non-rebreather. Anxious. Well developed, well nourished. HEENT: Pupils are round and equally reacting to light. EOMI. No scleral icterus. No conjunctival pallor. Normocephalic, atraumatic. No pharyngeal erythema. No thyromegaly. CARDIOVASCULAR: S1 and S2 present. No murmurs, rubs, or gallops. PULMONARY: diminished breath sounds bilaterally, no wheezing or crackles. ABDOMEN: Soft, nontender, nondistended, normoactive bowel sounds. No palpable organomegaly. MUSCULOSKELETAL: No joint swelling or deformity. EXTREMITIES: No cyanosis, clubbing, or pedal edema. NEUROLOGICAL: Gross neurological examination did not reveal any focal deficits. SKIN: No rashes. Assessment and plan: -Acute hypoxic respiratory failure secondary to Covid 19. Patient was started on Decadron will not qualify for Remdesivir, patient will be continued on covid vitamins, zinc supplements, oral dexamethasone. Lovenox twice a day considering elevated d-dimer in spite of no PE. Pulmonary following -Type 2 diabetes mellitus blood sugars are expected to be elevated and patient is continued on long acting, oral diabetic agents and sliding scale. -Hypovolemic hyponatremia: Patient on IV fluids -Hypomagnesemia and hypokalemia will be replaced -Hypertension -DVT prophylaxis: Lovenox as mentioned above -GI prophylaxis -No code Objective - Vital Signs Vital signs: Vital Signs Temp 96.8 F L 10/13/21 06:00 Pulse 82 10/13/21 06:00 Resp 20 10/13/21 06:00 BP 155/59 10/13/21 06:00 Pulse Ox 91 L 10/13/21 06:00 Intake & Output 10/12/21 10/13/21 10/13/21 18:59 06:59 18:59 Weight 77.111 kg Other: Voiding Method Bedside Commode Bedside Commode # Voids 10 8 - Labs CBC & Chem 7: 10/11/21 19:16 10/13/21 05:15 Labs: Abnormal Lab Results - Last 24 Hours (Table) 10/12/21 10/12/21 10/12/21 Range/Units 11:12 16:34 20:17 D-Dimer (<0.60) mg/L FEU POC Glucose (mg/dL) 189 H 250 H 273 H (75-99) mg/dL 10/13/21 10/13/21 Range/Units 05:15 06:48 D-Dimer 1.46 H (<0.60) mg/L FEU POC Glucose (mg/dL) 287 H (75-99) mg/dL Microbiology - Last 24 Hours (Table) 10/11/21 19:07 Blood Culture - Preliminary Blood No Growth after 24 hours 10/11/21 19:16 Blood Culture - Preliminary Blood No Growth after 24 hours
[2021-10-14] MEDS: ACETAMINOPHEN TAB 325 MG TAB PO PRN ×4 (02:07→20:59)
[2021-10-14] MEDS: SODIUM CHLORIDE 0.9% 1,000 ML IV SCH (04:58)
[2021-10-14 07:05] LABS: Glucose,Whole Blood 140 mg/dL (75-99)
[2021-10-14] MEDS: amLODIPine 10 MG TAB PO SCH (08:27)
[2021-10-14] MEDS: INSULIN ASPART (NovoLOG) 100 UNIT/ML VIAL SQ SCH ×4 (08:27→20:57)
[2021-10-14] MEDS: ENOXAPARIN 40 MG/0.4 ML SYRINGE SQ SCH (08:27)
[2021-10-14] MEDS: dexAMETHasone 2 MG TAB PO SCH (08:28)
[2021-10-14] MEDS: CHOLECALCIFEROL 125 MCG (5000 IU) TABLET PO SCH (08:29)
[2021-10-14] MEDS: ZINC SULFATE 220 MG CAP PO SCH (08:29)
[2021-10-14] MEDS: CHOLECALCIFEROL 10 MCG (400 IU) TABLET PO SCH (08:29)
[2021-10-14] MEDS: FAMOTIDINE 20 MG TAB PO SCH (08:29)
[2021-10-14] MEDS: PIOGLITAZONE 45 MG TAB PO SCH (08:29)
[2021-10-14] MEDS: ATORVASTATIN 20 MG TAB PO SCH (08:30)
[2021-10-14] MEDS: ASCORBIC ACID 500 MG TAB PO SCH ×2 (08:30→20:56)
[2021-10-14] MEDS: ALPRAZolam 0.25 MG TAB PO PRN (08:50)
[2021-10-14 11:43] LABS: Glucose,Whole Blood 173 mg/dL (75-99)
--- NOTE | 2021-10-14 13:10 | P.PN ---
Subjective Progress Note Date: 10/14/21 Principal diagnosis: Respiratory failure. This is a 81-year-old white female patient of Dr. Janett Caraballo, with past medical history of non-small cell lung cancer, with right upper lobectomy 5 years ago at the [facility] which was done by Dr. Salvador, previous history of smoking which has been in remission for last 12 years, but patient does carry [id number] smoking history, hypertension, diabetes mellitus type 2, hyperlipidemia. Patient presented to the emergency department on 10/11/2021 for evaluation of weakness for the past 2 weeks, cough, diarrhea, she denied shortness of breath. She reported no nausea or vomiting, she reported decreased oral intake. She denied any fever or chills. She is not vaccinated against COVID-19, she states she lives by herself and she is not aware of a COVID-19 positive contact. Her chest x-ray showed pulmonary interstitial edema. Patient tested positive for COVID-19 in the ER, the rest of her blood work revealed white blood cell count of 4.2, hemoglobin of 12.2, d- dimer of 2.43, sodium of 1:30, potassium is 3.2, chloride is 100, CO2 is 20, BUN of 19 creatinine 1.09, lactic acid was 0.9, AST was 52, ALT was 24, alk phos was 51, troponin was 0.020, proBNP was 944. CT angiogram was completed showing no evidence of pulmonary embolism, he did show extensive groundglass interstitial pulmonary infiltrates consistent with multifocal pneumonia. EKG showed sinus rhythm with PACs. Patient was hypoxic in the ED, and she was placed on supplemental oxygen, currently is up to 8 L her pulse ox is 92%, she is afebrile, hemodynamically she is stable, she was started on Decadron, prophylactic Lovenox 40 mg twice daily, she was given IV fluid boluses in the ED with a 1 L, and her IV fluids were infusing at 130 ML per hour, on clinical exam she appears to be fluid overloaded, with diffuse crackles, and chest x-ray findings are also suggesting possibility of fluid overload and CHF with unknown EF. Progress note dated 10/13/2021. This is a 81-year-old female admitted with a diagnosis of acute hypoxemic respiratory failure secondary to coronavirus associated pneumonia. The patient also has a history of non-small cell lung cancer, status post right upper lobectomy, 2016, previous tobacco use, hypertension, diabetes, hyperlipidemia, hyponatremia, and elevated d-dimer without CT evidence of pulmonary embolism. Unfortunately, her respiratory status has worsened although she states that she feels better. She's currently on 15 L high flow nasal O2, and a nonrebreather mask. She is a DO NOT RESUSCITATE patient. She is seen in room 484. She's getting saline at KVO. D-dimer was 1.46. Sodium 134, potassium 5, chlorides 106, CO2 15, anion gap 13, BUN 17, creatinine 1. C-reactive protein is 4.3. LDH is 775. Chest x-ray shows diffuse bilateral infiltrates. CT angiogram and Doppler studies of the lower extremities were also evaluated. The patient was seen in consultation yesterday, October 12. Progress note dated 10/14/2021 81-year-old female admitted with a diagnosis of acute hypoxemic respiratory failure secondary to coronavirus associated pneumonia. The patient also has a history of non-small cell lung cancer, status post right upper lobectomy, 2015, previous tobacco use, hypertension, diabetes, hyperlipidemia, and hyponatremia. CT angiogram was negative for pulmonary embolism. The patient remains on 15 L high flow nasal cannula, and a nonrebreather mask. No new labs today. Chest x- ray from October 13 shows worsening bilateral multifocal and confluent inf iltrates, consistent with coronavirus associated pneumonia. Objective - Vital Signs Vital signs: Vital Signs Temp 96.7 F L 10/14/21 10:45 Pulse 90 10/14/21 10:45 Resp 16 10/14/21 10:45 BP 123/75 10/14/21 10:45 Pulse Ox 95 10/14/21 10:45 Intake & Output 10/13/21 10/14/21 10/14/21 18:59 06:59 18:59 Output Total 400 Balance -400 Output: Urine 400 Other: Voiding Method Indwelling Catheter Indwelling Catheter # Voids 700 - Exam No acute distress, oriented 3. Currently, the patient's on 15 L high flow nasal O2, and a nonrebreather mass. Saturations are 95%. HEENT examination is grossly unremarkable. Neck supple. Full range of motion. No adenopathy thyromegaly or neck vein distention. Cardiovascular examination reveals regular rhythm rate. S1-S2 normal. No S3 or S4. No discernible murmur noted. Heart sounds are distant. Heart rate 90 bpm. Lungs reveal diffuse bilateral rhonchi and bilateral crackles. No wheezes. Breath sounds equal bilaterally. Saturations are 95% Abdomen soft bowel sounds are heard. No masses or tenderness. Extremities are intact. No cyanosis clubbing or edema. Skin is without rash or lesion. Neurologic examination is brief but nonfocal. - Labs CBC & Chem 7: 10/11/21 19:16 10/13/21 05:15 Labs: Abnormal Lab Results - Last 24 Hours (Table) 10/13/21 10/13/21 10/14/21 Range/Units 16:18 20:00 07:04 POC Glucose (mg/dL) 174 H 278 H 140 H (75-99) mg/dL 10/14/21 Range/Units 11:42 POC Glucose (mg/dL) 173 H (75-99) mg/dL Microbiology - Last 24 Hours (Table) 10/11/21 19:07 Blood Culture - Preliminary Blood No Growth after 48 hours 10/11/21 19:16 Blood Culture - Preliminary Blood No Growth after 48 hours Assessment and Plan Assessment: Acute hypoxemic respiratory failure secondary to coronavirus associated pneumonia. History of non-small cell lung cancer, status post right upper lobectomy, 2016. Previous history of 20 years of tobacco use. History of hypertension. Type 2 diabetes mellitus. History of hyperlipidemia. Hyponatremia, secondary to dehydration. No evidence of pulmonary embolism or lower extremity DVTs, on CT angiogram/lower extremity Dopplers. Plan: Plan dated 10/13/2021. Currently, the patient is a DO NOT RESUSCITATE patient. Today, we talked about AIRVO, and BiPAP with the patient. The nurse was at the bedside. The patient would not want to be intubated and mechanically ventilated. Currently, the patient's on vitamin C, vitamin D3, and zinc. In addition, the patient is receiving Decadron, daily, and Lovenox. Additional recommendations and suggestions are forthcoming. Prognosis is guarded. We will continue to follow make recommendations where appropriate. Plan dated 10/14/2021. The patient is currently doing about the same as she was yesterday. She remains on 15 L high flow nasal cannula and a nonrebreather mass. The patient is a DO NOT RESUSCITATE patient. We did talk yesterday about AIRVO and BiPAP if necessary. The patient remains on vitamin C, vitamin D3, and zinc. In addition, the patient is on both Lovenox, and Decadron. We will continue to follow and make recommendations where appropriate. Prognosis is guarded. The patient would not do well if he ended up on mechanical ventilation. Time with Patient: Less than 30
--- NOTE | 2021-10-14 13:51 | P.PN ---
Subjective Progress Note Date: 10/14/21 Patient is 80-year-old the female came in with compensative shortness of breath was diagnosed with Covid 19 today. Patient's symptoms started about a week ago cough shortness of breath. Patient doesn't have any fever. Patient is also bit hyponatremic secondary to hyponatremia, patient denied any nausea vomiting diarrhea patient is not vaccinated for Covid 19.. Patient has an elevated d- dimer had a CT angios the chest which did not show any pulmonary embolism but did show diffuse infiltrates consistent with Covid 19. Patient is presently on a liters of oxygen. 10/13/2021 Patient is seen and evaluated in follow-up this morning continues to be extremely short of breath requiring 15 L and also nonrebreather and is experiencing extreme anxiety and asking to remove the non-rebreather although oxygen saturations drop quickly and 02 saturations in the low 80's. Discussed at length about code status and patient wishes to be no code and adamant about not being on a mechanical ventilator. Patient being followed by pulmonary and patient is maintained on vitamin and zinc supplements along with sub q lovenox bid and oral dexamethasone. 10/14/2021 Patient is seen this morning continues to be extremely dyspneic with minimal exertion and maintained on 15 L high flow along with 15 L nonrebreather and is working to breathe. Patient appears fatigued although awakes easily and responds and falls back asleep. Pulmonary following closely. Patient is continued on vitamin and zinc supplements along with oral dexamethasone and Lovenox subcutaneous injections and will continue. No new labs today and will repeat labs along with chest x-ray in the morning. Review of systems: Constitutional: No reports of fatigue, fever, or chills, reports anxiety Cardiovascular: No reports of chest pain or palpitations Respiratory: reports of worsening shortness of breath GI: No reports of nausea, vomiting, or diarrhea : No reports of dysuria or retention Neurovascular: Reports generalized weakness All medications have been reviewed Active Medications Acetaminophen (Acetaminophen Tab 325 Mg Tab) 650 mg PO Q6HR PRN PRN Reason: Mild Pain or Fever > 100.5 Last Admin: 10/14/21 08:27 Dose: 650 mg Documented by: Alprazolam (Alprazolam 0.25 Mg Tab) 0.25 mg PO BID PRN PRN Reason: Anxiety Last Admin: 10/14/21 08:50 Dose: 0.25 mg Documented by: Amlodipine Besylate (Amlodipine 10 Mg Tab) 10 mg PO DAILY [facility] Last Admin: 10/14/21 08:27 Dose: 10 mg Documented by: Ascorbic Acid (Ascorbic Acid 500 Mg Tab) 500 mg PO BID [facility] Last Admin: 10/14/21 08:30 Dose: 500 mg Documented by: Atorvastatin Calcium (Atorvastatin 20 Mg Tab) 20 mg PO DAILY [facility] Last Admin: 10/14/21 08:30 Dose: 20 mg Documented by: Cholecalciferol (Cholecalciferol 125 Mcg (5000 Iu) Tablet) 125 mcg PO DAILY [facility] Last Admin: 10/14/21 08:29 Dose: 125 mcg Documented by: Cholecalciferol (Cholecalciferol 10 Mcg (400 Iu) Tablet) 10 mcg PO DAILY [facility] Last Admin: 10/14/21 08:29 Dose: 10 mcg Documented by: Dexamethasone (Dexamethasone 2 Mg Tab) 6 mg PO DAILY [facility] Last Admin: 10/14/21 08:28 Dose: 6 mg Documented by: Enoxaparin Sodium (Enoxaparin 40 Mg/0.4 Ml Syringe) 40 mg SQ DAILY [facility] Last Admin: 10/14/21 08:27 Dose: 40 mg Documented by: Famotidine (Famotidine 20 Mg Tab) 20 mg PO DAILY [facility] Last Admin: 10/14/21 08:29 Dose: 20 mg Documented by: Glimepiride (Glimepiride 1 Mg Tab) 1 mg PO Q48H [facility] Last Admin: 10/13/21 08:35 Dose: 1 mg Documented by: Sodium Chloride (Saline 0.9%) 1,000 mls @ 20 mls/hr IV .Q24H [facility] Last Admin: 10/14/21 04:58 Dose: Not Given Documented by: Insulin Aspart (Insulin Aspart (Novolog) 100 Unit/Ml Vial) 0 unit SQ [facility]; Protocol Last Admin: 10/14/21 08:27 Dose: 1 unit Documented by: Insulin Detemir (Insulin Detemir (Levemir) 100 Unit/Ml Syr) 10 unit SQ [facility] Last Admin: 10/13/21 20:12 Dose: 10 unit Documented by: Losartan Potassium (Losartan 50 Mg Tab) 100 mg PO [facility] Last Admin: 10/13/21 20:12 Dose: 100 mg Documented by: Naloxone HCl (Naloxone 0.4 Mg/Ml 1 Ml Vial) 0.2 mg IV Q2M PRN PRN Reason: Opioid Reversal Non-Formulary Medication (Alendronate Sodium [Fosamax]) 70 mg PO BLOOD [facility] Last Admin: 10/12/21 12:01 Dose: Not Given Documented by: Pioglitazone HCl (Pioglitazone 45 Mg Tab) 45 mg PO DAILY [facility] Last Admin: 10/14/21 08:29 Dose: 45 mg Documented by: Zinc Sulfate (Zinc Sulfate 220 Mg Cap) 220 mg PO DAILY [facility] Last Admin: 10/14/21 08:29 Dose: 220 mg Documented by: PHYSICAL EXAMINATION: GENERAL: The patient is alert and oriented x3, in no acute respiratory distress this morning and continues on 15 L HF NC and also on non-rebreather 15 L . Lethargic although arousable. Well developed, well nourished. HEENT: Pupils are round and equally reacting to light. EOMI. No scleral icterus. No conjunctival pallor. Normocephalic, atraumatic. No pharyngeal erythema. No thyromegaly. CARDIOVASCULAR: S1 and S2 present. No murmurs, rubs, or gallops. PULMONARY: diminished breath sounds bilaterally, no wheezing or crackles. ABDOMEN: Soft, nontender, nondistended, normoactive bowel sounds. No palpable organomegaly. MUSCULOSKELETAL: No joint swelling or deformity. EXTREMITIES: No cyanosis, clubbing, or pedal edema. NEUROLOGICAL: Gross neurological examination did not reveal any focal deficits. SKIN: No rashes. Assessment and plan: -Acute hypoxic respiratory failure secondary to Covid 19. Patient now requiring 15 L nonrebreather along with 15 L high flow. Patient was started on and will be continued on covid vitamins, zinc supplements, oral dexamethasone. Lovenox twice a day considering elevated d-dimer in spite of no PE. Pulmonary following, discussion being had about possible airvo or bipap if respiratory status continues to decline. She does not want mechanical ventilation. -Type 2 diabetes mellitus blood sugars are expected to be elevated and patient is continued on long acting, oral diabetic agents and sliding scale. -Hypovolemic hyponatremia: Improving and will continue to monitor and repeat labs -Hypomagnesemia, replaced and will repeat labs -Hypokalemia -Hypertension -DVT prophylaxis: Lovenox as mentioned above -GI prophylaxis -No code Plan: Continue with current medications and continue with supplemental oxygen support. Patient is maintained on 15 L nonrebreather along with 15 L high flow oxygen saturations are above 95%. Per nursing staff patient will take the nonrebreather off briefly for meals and drinks and desats very quickly. Pulmonary following as well and have mentioned possible BiPAP or airvo if respiratory status continues to decline. Patient will continue on oral dexamethasone along with Lovenox and vitamin and zinc supplements. Given the onset of symptoms patient is outside the window for REmdesivir and was not vaccinated against Covid 19. Will repeat labs along with chest x-ray in the morning. Encouraged increased activity as tolerated along with encouraging oral intake. Prognosis is guarded. Objective - Vital Signs Vital signs: Vital Signs Temp 97.6 F 10/14/21 06:58 Pulse 83 10/14/21 06:58 Resp 20 10/14/21 06:58 BP 145/69 10/14/21 06:58 Pulse Ox 98 10/14/21 06:58 Intake & Output 10/13/21 10/14/21 10/14/21 18:59 06:59 18:59 Output Total 400 Balance -400 Output: Urine 400 Other: Voiding Method Indwelling Catheter Indwelling Catheter # Voids 700 - Labs CBC & Chem 7: 10/11/21 19:16 10/13/21 05:15 Labs: Abnormal Lab Results - Last 24 Hours (Table) 10/13/21 10/13/21 10/13/21 Range/Units 11:34 16:18 20:00 POC Glucose (mg/dL) 250 H 174 H 278 H (75-99) mg/dL 10/14/21 Range/Units 07:04 POC Glucose (mg/dL) 140 H (75-99) mg/dL Microbiology - Last 24 Hours (Table) 10/11/21 19:07 Blood Culture - Preliminary Blood No Growth after 48 hours 10/11/21 19:16 Blood Culture - Preliminary Blood No Growth after 48 hours
[2021-10-14 16:43] LABS: Glucose,Whole Blood 155 mg/dL (75-99)
[2021-10-14 20:32] LABS: Glucose,Whole Blood 157 mg/dL (75-99)
[2021-10-14] MEDS: INSULIN DETEMIR (LEVEMIR) 100 UNIT/ML SYR SQ SCH (20:56)
[2021-10-14] MEDS: LOSARTAN 50 MG TAB PO SCH (20:56)
[2021-10-15] MEDS: ACETAMINOPHEN TAB 325 MG TAB PO PRN ×4 (02:30→21:48)
[2021-10-15] MEDS: ALPRAZolam 0.25 MG TAB PO PRN (02:58)
[2021-10-15] MEDS: SODIUM CHLORIDE 0.9% 1,000 ML IV SCH (04:52)
[2021-10-15 07:06] LABS: Glucose,Whole Blood 124 mg/dL (75-99)
[2021-10-15] MEDS: INSULIN ASPART (NovoLOG) 100 UNIT/ML VIAL SQ SCH ×4 (07:17→21:42)
[2021-10-15] MEDS: ZINC SULFATE 220 MG CAP PO SCH (08:15)
[2021-10-15] MEDS: ENOXAPARIN 40 MG/0.4 ML SYRINGE SQ SCH (08:15)
[2021-10-15] MEDS: ASCORBIC ACID 500 MG TAB PO SCH ×2 (08:15→21:42)
[2021-10-15] MEDS: FAMOTIDINE 20 MG TAB PO SCH (08:15)
[2021-10-15] MEDS: dexAMETHasone 2 MG TAB PO SCH (08:15)
[2021-10-15] MEDS: GLIMEPIRIDE 1 MG TAB PO SCH (08:16)
[2021-10-15] MEDS: ATORVASTATIN 20 MG TAB PO SCH (08:16)
[2021-10-15] MEDS: CHOLECALCIFEROL 10 MCG (400 IU) TABLET PO SCH (08:16)
[2021-10-15] MEDS: CHOLECALCIFEROL 125 MCG (5000 IU) TABLET PO SCH (08:16)
[2021-10-15] MEDS: PIOGLITAZONE 45 MG TAB PO SCH (08:16)
[2021-10-15] MEDS: amLODIPine 10 MG TAB PO SCH (08:16)
--- NOTE | 2021-10-15 11:30 | P.PN ---
Subjective Progress Note Date: 10/15/21 Principal diagnosis: Respiratory failure. This is a 81-year-old white female patient of Dr. Janett Caraballo, with past medical history of non-small cell lung cancer, with right upper lobectomy 5 years ago at the [facility] which was done by Dr. Salvador, previous history of smoking which has been in remission for last 12 years, but patient does carry [id number] smoking history, hypertension, diabetes mellitus type 2, hyperlipidemia. Patient presented to the emergency department on 10/11/2021 for evaluation of weakness for the past 2 weeks, cough, diarrhea, she denied shortness of breath. She reported no nausea or vomiting, she reported decreased oral intake. She denied any fever or chills. She is not vaccinated against COVID-19, she states she lives by herself and she is not aware of a COVID-19 positive contact. Her chest x-ray showed pulmonary interstitial edema. Patient tested positive for COVID-19 in the ER, the rest of her blood work revealed white blood cell count of 4.2, hemoglobin of 12.2, d- dimer of 2.43, sodium of 1:30, potassium is 3.2, chloride is 100, CO2 is 20, BUN of 19 creatinine 1.09, lactic acid was 0.9, AST was 52, ALT was 24, alk phos was 51, troponin was 0.020, proBNP was 944. CT angiogram was completed showing no evidence of pulmonary embolism, he did show extensive groundglass interstitial pulmonary infiltrates consistent with multifocal pneumonia. EKG showed sinus rhythm with PACs. Patient was hypoxic in the ED, and she was placed on supplemental oxygen, currently is up to 8 L her pulse ox is 92%, she is afebrile, hemodynamically she is stable, she was started on Decadron, prophylactic Lovenox 40 mg twice daily, she was given IV fluid boluses in the ED with a 1 L, and her IV fluids were infusing at 130 ML per hour, on clinical exam she appears to be fluid overloaded, with diffuse crackles, and chest x-ray findings are also suggesting possibility of fluid overload and CHF with unknown EF. Progress note dated 10/13/2021. This is a 81-year-old female admitted with a diagnosis of acute hypoxemic respiratory failure secondary to coronavirus associated pneumonia. The patient also has a history of non-small cell lung cancer, status post right upper lobectomy, 2016, previous tobacco use, hypertension, diabetes, hyperlipidemia, hyponatremia, and elevated d-dimer without CT evidence of pulmonary embolism. Unfortunately, her respiratory status has worsened although she states that she feels better. She's currently on 15 L high flow nasal O2, and a nonrebreather mask. She is a DO NOT RESUSCITATE patient. She is seen in room 484. She's getting saline at KVO. D-dimer was 1.46. Sodium 134, potassium 5, chlorides 106, CO2 15, anion gap 13, BUN 17, creatinine 1. C-reactive protein is 4.3. LDH is 775. Chest x-ray shows diffuse bilateral infiltrates. CT angiogram and Doppler studies of the lower extremities were also evaluated. The patient was seen in consultation yesterday, October 12. Progress note dated 10/14/2021 81-year-old female admitted with a diagnosis of acute hypoxemic respiratory failure secondary to coronavirus associated pneumonia. The patient also has a history of non-small cell lung cancer, status post right upper lobectomy, 2016, previous tobacco use, hypertension, diabetes, hyperlipidemia, and hyponatremia. CT angiogram was negative for pulmonary embolism. The patient remains on 15 L high flow nasal cannula, and a nonrebreather mask. No new labs today. Chest x- ray from October 13 shows worsening bilateral multifocal and confluent inf iltrates, consistent with coronavirus associated pneumonia. Progress note dated 10/15/2021. 81-year-old female again seen in room 484. The patient has now been in the hospital for 3 days. She was admitted with a diagnosis of acute hypoxemic respiratory failure secondary to coronavirus pneumonia. The patient was sitting in the chair. She is not manifesting any respiratory distress such as audible wheezing, use of accessory muscles, or conversational dyspnea. The patient is still on 15 L high flow nasal O2, and a nonrebreather mask. The patient is a DO NOT RESUSCITATE patient. No new labs today other than a glucose of 124. Objective - Vital Signs Vital signs: Vital Signs Temp 97.9 F 10/15/21 10:33 Pulse 94 10/15/21 10:33 Resp 19 10/15/21 10:33 BP 160/76 10/15/21 10:33 Pulse Ox 97 10/15/21 10:33 Intake & Output 10/14/21 10/15/21 10/15/21 18:59 06:59 18:59 Output Total 1200 Balance -1200 Output: Urine 1200 Other: Voiding Method Indwelling Catheter Indwelling Catheter Indwelling Catheter # Voids 400 # Bowel Movements 1 1 - Exam No acute distress, oriented 3. Currently, the patient's on 15 L high flow nasal O2, and a nonrebreather mass. Saturations are 97%. HEENT examination is grossly unremarkable. Neck supple. Full range of motion. No adenopathy thyromegaly or neck vein dist ention. Cardiovascular examination reveals regular rhythm rate. S1-S2 normal. No S3 or S4. No discernible murmur noted. Heart sounds are distant. Heart rate 94 bpm. Lungs reveal diffuse bilateral rhonchi and bilateral crackles. No wheezes. Breath sounds equal bilaterally. Saturations are 97%. Breath sounds are essentially unchanged. Abdomen soft bowel sounds are heard. No masses or tenderness. Extremities are intact. No cyanosis clubbing or edema. Skin is without rash or lesion. Neurologic examination is brief but nonfocal. - Labs CBC & Chem 7: 10/11/21 19:16 10/13/21 05:15 Labs: Abnormal Lab Results - Last 24 Hours (Table) 10/14/21 10/14/21 10/14/21 Range/Units 11:42 13:50 16:42 POC Glucose (mg/dL) 173 H 155 H (75-99) mg/dL Coronavirus (PCR) Detected A (Not Detectd) 10/14/21 10/15/21 Range/Units 20:30 07:05 POC Glucose (mg/dL) 157 H 124 H (75-99) mg/dL Coronavirus (PCR) (Not Detectd) Microbiology - Last 24 Hours (Table) 10/11/21 19:07 Blood Culture - Preliminary Blood No Growth after 72 hours 10/11/21 19:16 Blood Culture - Preliminary Blood No Growth after 72 hours Assessment and Plan Assessment: Acute hypoxemic respiratory failure secondary to coronavirus associated pneumonia. History of non-small cell lung cancer, status post right upper lobectomy, 2016. Previous history of 20 years of tobacco use. History of hypertension. Type 2 diabetes mellitus. History of hyperlipidemia. Hyponatremia, secondary to dehydration. No evidence of pulmonary embolism or lower extremity DVTs, on CT angiogram/lower extremity Dopplers. Plan: Plan dated 10/13/2021. Currently, the patient is a DO NOT RESUSCITATE patient. Today, we talked about AIRVO, and BiPAP with the patient. The nurse was at the bedside. The patient would not want to be intubated and mechanically ventilated. Currently, the patient's on vitamin C, vitamin D3, and zinc. In addition, the patient is receiving Decadron, daily, and Lovenox. Additional recommendations and suggestions are forthcoming. Prognosis is guarded. We will continue to follow make recommendations where appropriate. Plan dated 10/14/2021. The patient is currently doing about the same as she was yesterday. She remains on 15 L high flow nasal cannula and a nonrebreather mass. The patient is a DO NOT RESUSCITATE patient. We did talk yesterday about AIRVO and BiPAP if necessary. The patient remains on vitamin C, vitamin D3, and zinc. In addition, the patient is on both Lovenox, and Decadron. We will continue to follow and make recommendations where appropriate. Prognosis is guarded. The patient would not do well if he ended up on mechanical ventilation. Plan dated 10/15/2021. The patient remains about the same. She remains on 15 L high flow nasal O2, and a nonrebreather mass. Her saturations are 97%, and her oxygen should be weaned. The patient remains on vitamin C, vitamin D3, and zinc. In addition, the patient's on Lovenox and Decadron. The patient would not want intubation and mechanical ventilation. She is a DO NOT RESUSCITATE patient. We will continue to follow make recommendations where appropriate. Prognosis is very guarded. Time with Patient: Less than 30
[2021-10-15 11:36] LABS: Glucose,Whole Blood 212 mg/dL (75-99)
--- NOTE | 2021-10-15 14:17 | CDI ---
Documentation Clarification Form Date: 10/15/2021 02:07:26 PM From: Roxy Vann CCS, CCDS Admit Date: 10/12/2021 12:41:00 AM Patient Name: Kaitlyn Cheema Visit Number: [id number] Discharge Date: ATTENTION: The Clinical Documentation Specialists (CDI) and [facility] Coding Staff appreciate your assistance in clarifying documentation. Please respond to the clarification below the line at the bottom and electronically sign. The CDI & [facility] Coding staff will review the response and follow-up if needed. Please note: Queries are made part of the Legal Health Record. If you have any questions, please contact the author of this message via ITS. Dr. Dianne Robertson: CKD is documented in the 10/12 History & Physical without further specificity. Additional clarification regarding the stage of CKD is requested. History/Risk Factors per the 10/12 H/P: Lung Cancer status post right side Lobectomy, DM, Hyperlipidemia, Hypertension, Osteoarthritis, Renal Disease (CKD). Clinical Indicators: Presented to the ED on 10/11 with SOB from Urgent Care with Positive COVID test. Admit with COVID 19, Hypomagnesemia and Hypokalemia Current BUN/CR/GFR: 08/10.09/49 - 53.5 Historical GFR 06/24/2016: 50 - >60 Treatment 10/12: Blood Glucose monitoring, Insulin sliding scale, Blood cultures, O2 2Lnc, IV Na Cl 1,000 mls @ 130 mls/hr q7H, IV Mag Sulf 100 mls @ 100 mls/hr x1, po KDur 40 meq, IV Na Cl 500 mls @ 999 mls/hr q31M, IV Morphine 4 mg x1, po Hexadrol 6mg q12H, Lovenox 80 mg sq q12H, po Vit D3, po Vit C, po Orazinc 220 mg Daily, IV Lasix 40 mg x1. Nephrology is not consulted. Please clarify the stage of the CKD, if known: [ ] CKD Stage 1 (GFR > 90) [ ] CKD Stage 2 (GFR 60-89) [ ] CKD Stage 3 (GFR 30-59) [ ] CKD Stage 3a (GFR 45-59) [ ] Other, please specify [ ] Unable to determine (Template Last revised: October 2020) 10/16 Query response documented in the 10/15 Attending Physician Progress Note: Chronic Kidney Disease stage IIIa. (CDS: ROSA BEYER
[2021-10-15 16:36] LABS: Glucose,Whole Blood 301 mg/dL (75-99)
[2021-10-15] MEDS: ALPRAZolam 0.25 MG TAB PO SCH ×2 (17:16→21:42)
[2021-10-15 21:18] LABS: Glucose,Whole Blood 216 mg/dL (75-99)
[2021-10-15] MEDS: INSULIN DETEMIR (LEVEMIR) 100 UNIT/ML SYR SQ SCH (21:42)
[2021-10-15] MEDS: LOSARTAN 50 MG TAB PO SCH (21:42)
--- NOTE | 2021-10-15 23:45 | P.PN ---
Subjective Progress Note Date: 10/15/21 Patient is 80-year-old the female came in with compensative shortness of breath was diagnosed with Covid 19 today. Patient's symptoms started about a week ago cough shortness of breath. Patient doesn't have any fever. Patient is also bit hyponatremic secondary to hyponatremia, patient denied any nausea vomiting diarrhea patient is not vaccinated for Covid 19.. Patient has an elevated d- dimer had a CT angios the chest which did not show any pulmonary embolism but did show diffuse infiltrates consistent with Covid 19. Patient is presently on a liters of oxygen. 10/13/2021 Patient is seen and evaluated in follow-up this morning continues to be extremely short of breath requiring 15 L and also nonrebreather and is experiencing extreme anxiety and asking to remove the non-rebreather although oxygen saturations drop quickly and 02 saturations in the low 80's. Discussed at length about code status and patient wishes to be no code and adamant about not being on a mechanical ventilator. Patient being followed by pulmonary and patient is maintained on vitamin and zinc supplements along with sub q lovenox bid and oral dexamethasone. 10/14/2021 Patient is seen this morning continues to be extremely dyspneic with minimal exertion and maintained on 15 L high flow along with 15 L nonrebreather and is working to breathe. Patient appears fatigued although awakes easily and responds and falls back asleep. Pulmonary following closely. Patient is continued on vitamin and zinc supplements along with oral dexamethasone and Lovenox subcutaneous injections and will continue. No new labs today and will repeat labs along with chest x-ray in the morning. 10/15/2021 Patient is seen and evaluated this morning continues on 15 L high flow along with 15 L on the nonrebreather and pulmonary following closely. Patient is maintaining oxygen saturation of 97%. Patient appears exhausted and continues to be extremely anxious. Patient denies any worsening shortness of breath although continues to be extremely dyspneic with minimal exertion and is weak. Patient continues on oral dexamethasone along with vitamin and zinc supplements and Lovenox subcu and will continue. No new labs from today and will order for a.m. Continue to monitor Accu-Cheks closely and continue with current medic ations. Review of systems: Constitutional: reports of fatigue, no reports of fever, or chills, reports anxiety Cardiovascular: No reports of chest pain or palpitations Respiratory: reports of worsening shortness of breath GI: No reports of nausea, vomiting, or diarrhea : No reports of dysuria or retention Neurovascular: Reports generalized weakness All medications have been reviewed Active Medications Acetaminophen (Acetaminophen Tab 325 Mg Tab) 650 mg PO Q6HR PRN PRN Reason: Mild Pain or Fever > 100.5 Last Admin: 10/15/21 21:48 Dose: 650 mg Documented by: Alprazolam (Alprazolam 0.25 Mg Tab) 0.25 mg PO TID [facility] Last Admin: 10/15/21 21:42 Dose: 0.25 mg Documented by: Amlodipine Besylate (Amlodipine 10 Mg Tab) 10 mg PO DAILY [facility] Last Admin: 10/15/21 08:16 Dose: 10 mg Documented by: Ascorbic Acid (Ascorbic Acid 500 Mg Tab) 500 mg PO BID [facility] Last Admin: 10/15/21 21:42 Dose: 500 mg Documented by: Atorvastatin Calcium (Atorvastatin 20 Mg Tab) 20 mg PO DAILY [facility] Last Admin: 10/15/21 08:16 Dose: 20 mg Documented by: Cholecalciferol (Cholecalciferol 125 Mcg (5000 Iu) Tablet) 125 mcg PO DAILY [facility] Last Admin: 10/15/21 08:16 Dose: 125 mcg Documented by: Cholecalciferol (Cholecalciferol 10 Mcg (400 Iu) Tablet) 10 mcg PO DAILY [facility] Last Admin: 10/15/21 08:16 Dose: 10 mcg Documented by: Dexamethasone (Dexamethasone 2 Mg Tab) 6 mg PO DAILY [facility] Last Admin: 10/15/21 08:15 Dose: 6 mg Documented by: Enoxaparin Sodium (Enoxaparin 40 Mg/0.4 Ml Syringe) 40 mg SQ DAILY [facility] Last Admin: 10/15/21 08:15 Dose: 40 mg Documented by: Famotidine (Famotidine 20 Mg Tab) 20 mg PO DAILY [facility] Last Admin: 10/15/21 08:15 Dose: 20 mg Documented by: Glimepiride (Glimepiride 1 Mg Tab) 1 mg PO Q48H [facility] Last Admin: 10/15/21 08:16 Dose: 1 mg Documented by: Sodium Chloride (Saline 0.9%) 1,000 mls @ 20 mls/hr IV .Q24H [facility] Last Admin: 10/15/21 04:52 Dose: Not Given Documented by: Insulin Aspart (Insulin Aspart (Novolog) 100 Unit/Ml Vial) 0 unit SQ [facility]; Protocol Last Admin: 10/15/21 21:42 Dose: 3 unit Documented by: Insulin Detemir (Insulin Detemir (Levemir) 100 Unit/Ml Syr) 10 unit SQ [facility] Last Admin: 10/15/21 21:42 Dose: 10 unit Documented by: Losartan Potassium (Losartan 50 Mg Tab) 100 mg PO HS [facility] Last Admin: 10/15/21 21:42 Dose: 100 mg Documented by: Naloxone HCl (Naloxone 0.4 Mg/Ml 1 Ml Vial) 0.2 mg IV Q2M PRN PRN Reason: Opioid Reversal Non-Formulary Medication (Alendronate Sodium [Fosamax]) 70 mg PO BLOOD [facility] Last Admin: 10/12/21 12:01 Dose: Not Given Documented by: Pioglitazone HCl (Pioglitazone 45 Mg Tab) 45 mg PO DAILY [facility] Last Admin: 10/15/21 08:16 Dose: 45 mg Documented by: Zinc Sulfate (Zinc Sulfate 220 Mg Cap) 220 mg PO DAILY [facility] Last Admin: 10/15/21 08:15 Dose: 220 mg Documented by: PHYSICAL EXAMINATION: GENERAL: The patient is alert and oriented x3, in no acute respiratory distress this morning and continues on 15 L HF NC and also on non-rebreather 15 L . Well developed, well nourished. HEENT: Pupils are round and equally reacting to light. EOMI. No scleral icterus. No conjunctival pallor. Normocephalic, atraumatic. No pharyngeal erythema. No thyromegaly. CARDIOVASCULAR: S1 and S2 present. No murmurs, rubs, or gallops. PULMONARY: diminished breath sounds bilaterally, with some scattered rhonchi noted. ABDOMEN: Soft, nontender, nondistended, normoactive bowel sounds. No palpable organomegaly. MUSCULOSKELETAL: No joint swelling or deformity. EXTREMITIES: No cyanosis, clubbing, or pedal edema. NEUROLOGICAL: Gross neurological examination did not reveal any focal deficits. SKIN: No rashes. Assessment and plan: -Acute hypoxic respiratory failure secondary to Covid 19. Patient continued on 15 L nonrebreather along with 15 L high flow. Patient continued on covid vitamins, zinc supplements, oral dexamethasone. Lovenox twice a day considering elevated d-dimer in spite of no PE. Pulmonary following, discussion being had about possible airvo or bipap if respiratory status continues to decline. She does not want mechanical ventilation. -Type 2 diabetes mellitus blood sugars are expected to be elevated and patient is continued on long acting, oral diabetic agents and sliding scale. -Hypovolemic hyponatremia: Improving and will continue to monitor and repeat labs -Hypomagnesemia, replaced and will repeat labs -Hypokalemia -Chronic kidney disease stage IIIa -Hypertension -DVT prophylaxis: Lovenox as mentioned above -GI prophylaxis -No code Plan: Continue with current medications and continue with supplemental oxygen support. Patient is maintained on 15 L nonrebreather along with 15 L high flow oxygen saturations are above 95%. Pulmonary following as well and have mentioned possible BiPAP or airvo if respiratory status continues to decline. Patient will continue on oral dexamethasone along with Lovenox and vitamin and zinc supplements. Given the onset of symptoms patient was outside the window for Remdesivir and was not vaccinated against Covid 19. Will repeat labs along with chest x-ray in the morning. Encouraged increased activity as tolerated along with encouraging oral intake. Prognosis is quite guarded. Objective - Vital Signs Vital signs: Vital Signs Temp 96.4 F L 10/15/21 05:26 Pulse 64 10/15/21 05:26 Resp 20 10/15/21 05:26 BP 145/67 10/15/21 05:26 Pulse Ox 97 10/15/21 05:26 Intake & Output 10/14/21 10/15/21 10/15/21 18:59 06:59 18:59 Output Total 1200 Balance -1200 Output: Urine 1200 Other: Voiding Method Indwelling Catheter Indwelling Catheter # Voids 400 # Bowel Movements 1 - Labs CBC & Chem 7: 10/11/21 19:16 10/13/21 05:15 Labs: Abnormal Lab Results - Last 24 Hours (Table) 10/14/21 10/14/21 10/14/21 Range/Units 11:42 13:50 16:42 POC Glucose (mg/dL) 173 H 155 H (75-99) mg/dL Coronavirus (PCR) Detected A (Not Detectd) 10/14/21 10/15/21 Range/Units 20:30 07:05 POC Glucose (mg/dL) 157 H 124 H (75-99) mg/dL Coronavirus (PCR) (Not Detectd) Microbiology - Last 24 Hours (Table) 10/11/21 19:07 Blood Culture - Preliminary Blood No Growth after 72 hours 10/11/21 19:16 Blood Culture - Preliminary Blood No Growth after 72 hours
[2021-10-16] MEDS ORDERED: ALPRAZolam 0.25 MG TAB PO STA (04:47)
[2021-10-16 06:06] LABS: Basophils % (A) 0 %; Eosinophils % (A) 0 %; HCT 38.3 % (34.0-46.0); HGB 12.7 gm/dL (11.4-16.0); Lymphocytes # (A) 0.5 k/uL (1.0-4.8); Lymphocytes % (A) 5 %; MCHC 33.1 g/dL (31.0-37.0); MCV 96.7 fL (80.0-100.0); Mean Platelet Volume 8.4; Monocytes # (A) 0.3 k/uL (0-1.0); Monocytes % (A) 3 %; Neutrophils # (A) 9.3 k/uL (1.3-7.7); Neutrophils % (A) 89 %; Platelet Count 189 k/uL (150-450); RBC 3.96 m/uL (3.80-5.40); RDW 13.4 % (11.5-15.5); WBC 10.4 k/uL (3.8-10.6)
[2021-10-16] MEDS: SODIUM CHLORIDE 0.9% 1,000 ML IV SCH (06:11)
[2021-10-16 06:25] LABS: African American GFR (CKD) 67 (>60 ml/min/1.73 sqM); Anion Gap 6 mmol/L; Blood Urea Nitrogen 19 mg/dL (7-17); Calcium 8.3 mg/dL (8.4-10.2); Carbon Dioxide 19 mmol/L (22-30); Chloride 110 mmol/L (98-107); Glucose 82 mg/dL (74-99); Non-African American GFR(CKD) 58 (>60 ml/min/1.73 sqM); Sodium 135 mmol/L (137-145)
[2021-10-16 06:40] LABS: Magnesium 1.8 mg/dL (1.6-2.3); Potassium 4.5 mmol/L (3.5-5.1)
[2021-10-16 07:24] LABS: Glucose,Whole Blood 77 mg/dL (75-99)
[2021-10-16] MEDS: INSULIN ASPART (NovoLOG) 100 UNIT/ML VIAL SQ SCH ×2 (07:44→12:11)
[2021-10-16] MEDS: ALPRAZolam 0.25 MG TAB PO SCH (07:46)
[2021-10-16] MEDS: CHOLECALCIFEROL 125 MCG (5000 IU) TABLET PO SCH (07:46)
[2021-10-16] MEDS: ATORVASTATIN 20 MG TAB PO SCH (07:46)
[2021-10-16] MEDS: ZINC SULFATE 220 MG CAP PO SCH (07:47)
[2021-10-16] MEDS: ASCORBIC ACID 500 MG TAB PO SCH (07:47)
[2021-10-16] MEDS: dexAMETHasone 2 MG TAB PO SCH (07:47)
[2021-10-16] MEDS: amLODIPine 10 MG TAB PO SCH (07:47)
[2021-10-16] MEDS: FAMOTIDINE 20 MG TAB PO SCH (07:47)
[2021-10-16] MEDS: CHOLECALCIFEROL 10 MCG (400 IU) TABLET PO SCH (07:48)
[2021-10-16] MEDS: PIOGLITAZONE 45 MG TAB PO SCH (07:48)
[2021-10-16] MEDS: ENOXAPARIN 40 MG/0.4 ML SYRINGE SQ SCH (07:48)
--- NOTE | 2021-10-16 08:37 | XR ---
EXAMINATION TYPE: XR chest 1V portable DATE OF EXAM: 10/16/2021 COMPARISON: 10/13/2021 INDICATION: Shortness of breath, cough TECHNIQUE: Single frontal view of the chest is obtained. FINDINGS: The heart size is normal. The pulmonary vasculature is normal. Diffuse increased lung markings are present bilaterally. Findings are worsening over the interval. Fi ndings can be compatible with atypical pneumonia IMPRESSION: 1. Worsening bilateral lung infiltrates greater on the left. Continued follow-up is recommended.
[2021-10-16 10:57] VITALS: BP 176/76; PULSE 108; TEMP 98.9
[2021-10-16 12:03] LABS: Glucose,Whole Blood 127 mg/dL (75-99)
--- NOTE | 2021-10-16 13:01 | P.PN ---
Subjective Progress Note Date: 10/16/21 Principal diagnosis: Respiratory failure. This is a 81-year-old white female patient of Dr. Janett Caraballo, with past medical history of non-small cell lung cancer, with right upper lobectomy 5 years ago at the [facility] and [facility] which was done by Dr. Salvador, previous history of smoking which has been in remission for last 12 years, but patient does carry [id number] smoking history, hypertension, diabetes mellitus type 2, hyperlipidemia. Patient presented to the emergency department on 10/11/2021 for evaluation of weakness for the past 2 weeks, cough, diarrhea, she denied shortness of breath. She reported no nausea or vomiting, she reported decreased oral intake. She denied any fever or chills. She is not vaccinated against COVID-19, she states she lives by herself and she is not aware of a COVID-19 positive contact. Her chest x-ray showed pulmonary interstitial edema. Patient tested positive for COVID-19 in the ER, the rest of her blood work revealed white blood cell count of 4.2, hemoglobin of 12.2, d- dimer of 2.43, sodium of 1:30, potassium is 3.2, chloride is 100, CO2 is 20, BUN of 19 creatinine 1.09, lactic acid was 0.9, AST was 52, ALT was 24, alk phos was 51, troponin was 0.020, proBNP was 944. CT angiogram was completed showing no evidence of pulmonary embolism, he did show extensive groundglass interstitial pulmonary infiltrates consistent with multifocal pneumonia. EKG showed sinus rhythm with PACs. Patient was hypoxic in the ED, and she was placed on supplemental oxygen, currently is up to 8 L her pulse ox is 92%, she is afebrile, hemodynamically she is stable, she was started on Decadron, prophylactic Lovenox 40 mg twice daily, she was given IV fluid boluses in the ED with a 1 L, and her IV fluids were infusing at 130 ML per hour, on clinical exam she appears to be fluid overloaded, with diffuse crackles, and chest x-ray findings are also suggesting possibility of fluid overload and CHF with unknown EF. Progress note dated 10/13/2021. This is a 81-year-old female admitted with a diagnosis of acute hypoxemic respiratory failure secondary to coronavirus associated pneumonia. The patient also has a history of non-small cell lung cancer, status post right upper lobectomy, 2016, previous tobacco use, hypertension, diabetes, hyperlipidemia, hyponatremia, and elevated d-dimer without CT evidence of pulmonary embolism. Unfortunately, her respiratory status has worsened although she states that she feels better. She's currently on 15 L high flow nasal O2, and a nonrebreather mask. She is a DO NOT RESUSCITATE patient. She is seen in room 484. She's getting saline at KVO. D-dimer was 1.46. Sodium 134, potassium 5, chlorides 106, CO2 15, anion gap 13, BUN 17, creatinine 1. C-reactive protein is 4.3. LDH is 775. Chest x-ray shows diffuse bilateral infiltrates. CT angiogram and Doppler studies of the lower extremities were also evaluated. The patient was seen in consultation yesterday, October 12. Progress note dated 10/14/2021 81-year-old female admitted with a diagnosis of acute hypoxemic respiratory failure secondary to coronavirus associated pneumonia. The patient also has a history of non-small cell lung cancer, status post right upper lobectomy, 2016, previous tobacco use, hypertension, diabetes, hyperlipidemia, and hyponatremia. CT angiogram was negative for pulmonary embolism. The patient remains on 15 L high flow nasal cannula, and a nonrebreather mask. No new labs today. Chest x- ray from October 13 shows worsening bilateral multifocal and confluent inf iltrates, consistent with coronavirus associated pneumonia. Progress note dated 10/15/2021. 81-year-old female again seen in room 484. The patient has now been in the hospital for 3 days. She was admitted with a diagnosis of acute hypoxemic respiratory failure secondary to coronavirus pneumonia. The patient was sitting in the chair. She is not manifesting any respiratory distress such as audible wheezing, use of accessory muscles, or conversational dyspnea. The patient is still on 15 L high flow nasal O2, and a nonrebreather mask. The patient is a DO NOT RESUSCITATE patient. No new labs today other than a glucose of 124. Progress note dated 10/16/2021. 81-year-old female again seen in room 484. The patient's respiratory status has declined further. The patient's currently on AIRVO at 60 L/m with an FiO2 of 93%, and also and a nonrebreather mask, and still, saturations are only in the mid 80s. She's not receiving any IV fluids. The patient is a DO NOT RESUSCITATE patient. I think we should consult hospice, or palliative care services. The patient will not do well long-term obviously. The patient is not a candidate for the intensive care unit, nor she candidate for intubation or mechanical ventilation. Labs today show a white count of 10.4, hemoglobin 12.7, hematocrit 38.3, and platelet count 189,000. Sodium 135, potassium 4.5, chlorides 110, CO2 19, anion gap 6, BUN 19, with a creatinine 0.94. Unfortunately, chest x-ray shows worsening bilateral infiltrates consistent with coronavirus associated pneumonia. Objective - Vital Signs Vital signs: Vital Signs Temp 98.9 F 10/16/21 10:00 Pulse 108 H 10/16/21 10:00 Resp 40 H 10/16/21 10:13 BP 176/76 10/16/21 10:00 Pulse Ox 95 10/16/21 11:30 Intake & Output 10/15/21 10/16/21 10/16/21 18:59 06:59 18:59 Output Total 700 1125 Balance -700 -1125 Output: Urine 700 1125 Uretheral (Roberts) 400 Other: Voiding Method Indwelling Catheter Indwelling Catheter Indwelling Catheter # Bowel Movements 1 1 - Exam The patient is tachypneic and dyspneic. She has AIRVO nasal cannula in place as well as a nonrebreather mass. HEENT examination is grossly unremarkable. Neck supple. Full range of motion. No adenopathy thyromegaly or neck vein distention. Cardiovascular examination reveals regular rhythm rate. S1-S2 normal. No S3 or S4. No discernible murmur noted. Heart sounds are distant. Heart rate 108 bpm. Lungs reveal diffuse bilateral rhonchi and bilateral crackles. No wheezes. Breath sounds equal bilaterally. Breath sounds are much worse today. Saturations are in the mid 80s. Abdomen soft bowel sounds are heard. No masses or tenderness. Extremities are intact. No cyanosis clubbing or edema. Skin is without rash or lesion. Neurologic examination is brief but nonfocal. She is somewhat lethargic and somnolent today. - Labs CBC & Chem 7: 10/16/21 05:15 10/16/21 05:15 Labs: Abnormal Lab Results - Last 24 Hours (Table) 10/15/21 10/15/21 10/16/21 Range/Units 16:35 21:17 05:15 Neutrophils # 9.3 H (1.3-7.7) k/uL Lymphocytes # 0.5 L (1.0-4.8) k/uL Sodium (137-145) mmol/L Chloride (98-107) mmol/L Carbon Dioxide (22-30) mmol/L BUN (7-17) mg/dL POC Glucose (mg/dL) 301 H 216 H (75-99) mg/dL Calcium (8.4-10.2) mg/dL 10/16/21 10/16/21 Range/Units 05:15 12:01 Neutrophils # (1.3-7.7) k/uL Lymphocytes # (1.0-4.8) k/uL Sodium 135 L (137-145) mmol/L Chloride 110 H (98-107) mmol/L Carbon Dioxide 19 L (22-30) mmol/L BUN 19 H (7-17) mg/dL POC Glucose (mg/dL) 127 H (75-99) mg/dL Calcium 8.3 L (8.4-10.2) mg/dL Microbiology - Last 24 Hours (Table) 10/11/21 19:07 Blood Culture - Preliminary Blood No Growth after 96 hours 10/11/21 19:16 Blood Culture - Preliminary Blood No Growth after 96 hours Assessment and Plan Assessment: Acute hypoxemic respiratory failure secondary to coronavirus associated pneumonia. History of non-small cell lung cancer, status post right upper lobectomy, 2016. Previous history of 20 years of tobacco use. History of hypertension. Type 2 diabetes mellitus. History of hyperlipidemia. Hyponatremia, secondary to dehydration. No evidence of pulmonary embolism or lower extremity DVTs, on CT angiogram/lower extremity Dopplers. Plan: Plan dated 10/13/2021. Currently, the patient is a DO NOT RESUSCITATE patient. Today, we talked about AIRVO, and BiPAP with the patient. The nurse was at the bedside. The patient would not want to be intubated and mechanically ventilated. Currently, the patient's on vitamin C, vitamin D3, and zinc. In addition, the patient is receiving Decadron, daily, and Lovenox. Additional recommendations and suggestions are forthcoming. Prognosis is guarded. We will continue to follow make recommendations where appropriate. Plan dated 10/14/2021. The patient is currently doing about the same as she was yesterday. She remains on 15 L high flow nasal cannula and a nonrebreather mass. The patient is a DO NOT RESUSCITATE patient. We did talk yesterday about AIRVO and BiPAP if necessary. The patient remains on vitamin C, vitamin D3, and zinc. In addition, the patient is on both Lovenox, and Decadron. We will continue to follow and make recommendations where appropriate. Prognosis is guarded. The patient would not do well if he ended up on mechanical ventilation. Plan dated 10/15/2021. The patient remains about the same. She remains on 15 L high flow nasal O2, and a nonrebreather mass. Her saturations are 97%, and her oxygen should be weaned. The patient remains on vitamin C, vitamin D3, and zinc. In addition, the patient's on Lovenox and Decadron. The patient would not want intubation and mechanical ventilation. She is a DO NOT RESUSCITATE patient. We will continue to follow make recommendations where appropriate. Prognosis is very guarded. Plan dated 10/16/2021. The patient has taken a turn for the worse. She is now on AIRVO and a nonrebreather mask. She's quite tachypneic and dyspneic. Chest x-ray is much worse. The patient is a DO NOT RESUSCITATE patient. We will continue to follow make recommendations were appropriate. I believe a hospice consultation or palliative care consultation is in order. He is not a candidate for the intensive care unit, or intubation with mechanical ventilation. Time with Patient: Less than 30
[2021-10-16 13:15] VITALS: BMI 33.2
[2021-10-16] MEDS ORDERED: ATROPINE OPHTH SOLN 1% 5ML BTL SUBLINGUAL PRN (13:56)
[2021-10-16] MEDS ORDERED: SCOPOLAMINE 1.5MG/72HR PATCH TRANSDERM SCH (14:00)
--- NOTE | 2021-10-16 15:44 | P.PN ---
Subjective Progress Note Date: 10/16/21 Patient is 80-year-old the female came in with compensative shortness of breath was diagnosed with Covid 19 today. Patient's symptoms started about a week ago cough shortness of breath. Patient doesn't have any fever. Patient is also bit hyponatremic secondary to hyponatremia, patient denied any nausea vomiting diarrhea patient is not vaccinated for Covid 19.. Patient has an elevated d- dimer had a CT angios the chest which did not show any pulmonary embolism but did show diffuse infiltrates consistent with Covid 19. Patient is presently on a liters of oxygen. 10/13/2021 Patient is seen and evaluated in follow-up this morning continues to be extremely short of breath requiring 15 L and also nonrebreather and is experiencing extreme anxiety and asking to remove the non-rebreather although oxygen saturations drop quickly and 02 saturations in the low 80's. Discussed at length about code status and patient wishes to be no code and adamant about not being on a mechanical ventilator. Patient being followed by pulmonary and patient is maintained on vitamin and zinc supplements along with sub q lovenox bid and oral dexamethasone. 10/14/2021 Patient is seen this morning continues to be extremely dyspneic with minimal exertion and maintained on 15 L high flow along with 15 L nonrebreather and is working to breathe. Patient appears fatigued although awakes easily and responds and falls back asleep. Pulmonary following closely. Patient is continued on vitamin and zinc supplements along with oral dexamethasone and Lovenox subcutaneous injections and will continue. No new labs today and will repeat labs along with chest x-ray in the morning. 10/15/2021 Patient is seen and evaluated this morning continues on 15 L high flow along with 15 L on the nonrebreather and pulmonary following closely. Patient is maintaining oxygen saturation of 97%. Patient appears exhausted and continues to be extremely anxious. Patient denies any worsening shortness of breath although continues to be extremely dyspneic with minimal exertion and is weak. Patient continues on oral dexamethasone along with vitamin and zinc supplements and Lovenox subcu and will continue. No new labs from today and will order for a.m. Continue to monitor Accu-Cheks closely and continue with current medic ations. 10/16/2021 She is seen this morning and is currently on maximum amounts of oxygen via Airvo at 60/90 and continues to be using accessory muscles and working to breathe. Patient is exhausted and currently sleeping and nursing staff reports when she is awake is extremely restless and agitated and pulling on IVs and to being in oxygen and continues to take oxygen off of face. BiPAP was recommended although patient would not tolerate and would continue to remove the mask. Patient is no code per her request and discussed with daughter about overall poor prognosis and extremely guarded prognosis and she has agreed to comfort care measures. Pulmonary following as well and is agreeable with this. Daughter and son have to come from out of town where they live approximately 1-1-1/2 hours away and working on coming now. Other medications will be discontinued and comfort orders placed. Review of systems: Unable to obtain as patient is lethargic and not responding at this time. When awake patient is extremely restless and confused. All medications have been reviewed Active Medications Acetaminophen (Acetaminophen Tab 325 Mg Tab) 650 mg PO Q6HR PRN PRN Reason: Mild Pain or Fever > 100.5 Last Admin: 10/15/21 21:48 Dose: 650 mg Documented by: Atropine Sulfate (Atropine Ophth Soln 1% 5ml Btl) 2 drops SUBLINGUAL Q4HR PRN PRN Reason: Excess Secretions Morphine Sulfate 100 mg/ (Sodium Chloride) 102 mls @ 1.02 mls/hr IV .Q24H YASMINE; Protocol Lorazepam (Lorazepam 2 Mg/Ml Inj) 1 mg IV Q6HR PRN PRN Reason: Anxiety Naloxone HCl (Naloxone 0.4 Mg/Ml 1 Ml Vial) 0.2 mg IV Q2M PRN PRN Reason: Opioid Reversal Scopolamine (Scopolamine 1.5mg/72hr Patch) 1 patch TRANSDERM Q72H YASMINE PHYSICAL EXAMINATION: GENERAL: The patient is alert and oriented x0 and extreme acute respiratory distress this morning and now on Airvo maximum support 60/90. HEENT: Pupils are round and equally reacting to light. EOMI. No scleral icterus. No conjunctival pallor. Normocephalic, atraumatic. No pharyngeal erythema. No thyromegaly. CARDIOVASCULAR: S1 and S2 present. No murmurs, rubs, or gallops. PULMONARY: diminished breath sounds bilaterally, with some scattered rhonchi and crackles noted. Accessory muscle use noted on exam ABDOMEN: Soft, nontender, nondistended, normoactive bowel sounds. No palpable organomegaly. MUSCULOSKELETAL: No joint swelling or deformity. EXTREMITIES: No cyanosis, clubbing, or pedal edema. NEUROLOGICAL: Minimally responsive and extremely lethargic unable to completely assess SKIN: No rashes. Assessment and plan: -Acute hypoxic respiratory failure secondary to Covid 19. Patient now requiring high amounts of oxygen and currently on 60/90 Airvo and continues to be dyspneic and hypoxic working to breathe. -Type 2 diabetes mellitus blood sugars are expected to be elevated due to steroid use -Hypovolemic hyponatremia: Improving -Hypomagnesemia, improved -Hypokalemia, improved -Chronic kidney disease stage IIIa -Hypertension -DVT prophylaxis: Lovenox as mentioned above -GI prophylaxis -No code Plan: Continue with current medications and continue with supplemental oxygen support. Patient is now on Airvo 60/90 and continues to be hypoxic with oxygen saturations of less than 50% when patient takes the mask off. Patient continues to remove wires and tubing and masks when awake and is currently extremely l ethargic and working to breathe and unresponsive. Lengthy discussion was had with family about patient's wishes prior to requiring more oxygen and patient was adamant about being a no code with no ventilation. Spoke to daughter today who states indeed her mother would've never wanted to be on mechanical vent and that she always stressed the importance. Daughter contacting other brothers and will be coming to the hospital soon. They are agreeable with comfort measures and comfort care orders will be placed. Patient is continued with Covid and discussed with family about the importance of maintaining precautions and accommodations will be made to visit the patient as this is end-of-life. Prognosis is extremely poor and guarded at this time. Continue to monitor closely and attempt to keep the patient comfortable. Objective - Vital Signs Vital signs: Vital Signs Temp 98.0 F 10/16/21 06:00 Pulse 100 10/16/21 06:00 Resp 20 10/16/21 06:00 BP 144/73 10/16/21 06:00 Pulse Ox 93 L 10/16/21 08:00 Intake & Output 10/15/21 10/16/21 10/16/21 18:59 06:59 18:59 Output Total 700 1125 Balance -700 -1125 Output: Urine 700 1125 Uretheral (Roberts) 400 Other: Voiding Method Indwelling Catheter Indwelling Catheter # Bowel Movements 1 1 - Labs CBC & Chem 7: 10/16/21 05:15 10/16/21 05:15 Labs: Abnormal Lab Results - Last 24 Hours (Table) 10/15/21 10/15/21 10/15/21 Range/Units 11:35 16:35 21:17 Neutrophils # (1.3-7.7) k/uL Lymphocytes # (1.0-4.8) k/uL Sodium (137-145) mmol/L Chloride (98-107) mmol/L Carbon Dioxide (22-30) mmol/L BUN (7-17) mg/dL POC Glucose (mg/dL) 212 H 301 H 216 H (75-99) mg/dL Calcium (8.4-10.2) mg/dL 10/16/21 10/16/21 Range/Units 05:15 05:15 Neutrophils # 9.3 H (1.3-7.7) k/uL Lymphocytes # 0.5 L (1.0-4.8) k/uL Sodium 135 L (137-145) mmol/L Chloride 110 H (98-107) mmol/L Carbon Dioxide 19 L (22-30) mmol/L BUN 19 H (7-17) mg/dL POC Glucose (mg/dL) (75-99) mg/dL Calcium 8.3 L (8.4-10.2) mg/dL Microbiology - Last 24 Hours (Table) 10/11/21 19:07 Blood Culture - Preliminary Blood No Growth after 96 hours 10/11/21 19:16 Blood Culture - Preliminary Blood No Growth after 96 hours
[2021-10-16] MEDS: LORazepam 2 MG/ML INJ IV PRN ×2 (15:55→20:55)
[2021-10-16] MEDS: MORPHINE SULFATE (100 MG/2 ML) 100 MG in SODIUM CHLORIDE 0.9% 100 ML IV SCH (17:16)
[2021-10-17] MEDS: MORPHINE SULFATE (100 MG/2 ML) 100 MG in SODIUM CHLORIDE 0.9% 100 ML IV SCH (03:51)
[2021-10-17 10:36] VITALS: RESP 16
--- NOTE | 2021-10-17 13:47 | P.DS ---
Providers Date of admission: 10/12/21 00:41 Expected date of discharge: 10/17/21 Attending physician: Yony Vang Consults: 10/12/21 00:42 Consult Physician Routine Consulting Provider: Cesilia Duke Consult Reason/Comments: Covid Pneumonia Do you want consulting provider notified?: Yes Primary care physician: Janett Caraballo Hospital Course: Final diagnosis -Acute hypoxic respiratory failure secondary to bilateral interstitial Covid 19 pneumonia -Type 2 diabetes mellitus -Hypovolemic hyponatremia -Hypomagnesemia, improved -Hypokalemia, improved -Chronic kidney disease stage IIIa -Hypertension -DVT prophylaxis -GI prophylaxis -No code Preliminary cause of Bilateral interstitial COVID-19 pneumonia Discharge disposition Patient has on 10/17/2021. According to nursing documentation time of is 12:20 PM. Family was present and patient was made comfort care yesterday and was on morphine drip along with atropine and Ativan. Hospital course This is a 81-year-old female who was recently admitted with increasing shortness of breath and diagnosed with COVID-19 and was being closely monitored. Patient did have symptoms approximately 1 week prior with cough and shortness of breath which has gotten worse and patient was not vaccinated for Covid. Patient's respiratory status quickly declined and patient was adamant about no CODE STATUS and was placed on high flow amounts of oxygen and became more restless and hypoxic and altered and family was agreeable with comfort care measures and comfort care orders were placed. Family present at bedside once the comfort care orders were placed and stayed with the patient. Patient . Please refer to previous documentations for further HPI. Patient Condition at Discharge: Poor Plan - Discharge Summary Discharge Rx Participant: No New Discharge Prescriptions: No Action Simvastatin 40 mg PO DAILY Pioglitazone [Actos] 45 mg PO DAILY Alendronate Sodium [Fosamax] 70 mg PO BLOOD amLODIPine [Norvasc] 10 mg PO DAILY Losartan Potassium 100 mg PO HS Glimepiride [Amaryl] 1 mg PO Q48H Ergocalciferol (Vitamin D2) [Drisdol (50,000 Iu)] 1,250 mcg PO QMONTHLY Discharge Medication List Alendronate Sodium [Fosamax] 70 mg PO BLOOD 10/11/21 [History] Ergocalciferol (Vitamin D2) [Drisdol (50,000 Iu)] 1,250 mcg PO QMONTHLY 10/11/21 [History] Glimepiride [Amaryl] 1 mg PO Q48H 10/11/21 [History] Losartan Potassium 100 mg PO HS 10/11/21 [History] Pioglitazone [Actos] 45 mg PO DAILY 10/11/21 [History] Simvastatin 40 mg PO DAILY 10/11/21 [History] amLODIPine [Norvasc] 10 mg PO DAILY 10/11/21 [History] Follow up Appointment(s)/Referral(s): Janett Caraballo MD [Primary Care Provider] - 1-2 days Patient Instructions/Handouts: Coronavirus Disease 2019 (COVID-19) Discharge Disposition: - Preliminary Cause of Preliminary Cause of : Bilateral COVID-19 interstitial pneumonia
== END 2021-10-17 17:10 | disposition expired | DRG 177 ==
LOC: EC 17:26 → 4SSUR 10-12 00:41
PROVIDERS: ADMIT Hospitalist; ATTEND Hospitalist
PROC: 5A0955A Assistance with Respiratory Ventilation, Greater than 96 Consecutive Hours, High Flow/Velocity Cannula (ICD-10-PCS; principal; 2021-10-12)
DX: U07.1 COVID-19 (principal); J12.82 Pneumonia due to coronavirus disease 2019; J96.01 Acute respiratory failure with hypoxia; E87.1 Hypo-osmolality and hyponatremia; E11.22 Type 2 diabetes mellitus with diabetic chronic kidney disease; E78.5 Hyperlipidemia, unspecified; E83.42 Hypomagnesemia; E86.0 Dehydration; E86.1 Hypovolemia; E87.6 Hypokalemia; F41.9 Anxiety disorder, unspecified; I12.9 Hypertensive chronic kidney disease with stage 1 through stage 4 chronic kidney disease, or unspecified chronic kidney disease; M19.90 Unspecified osteoarthritis, unspecified site; R79.1 Abnormal coagulation profile; N18.31 Chronic kidney disease, stage 3a; Z51.5 Encounter for palliative care; Z66 Do not resuscitate; Z79.83 Long term (current) use of bisphosphonates; Z79.84 Long term (current) use of oral hypoglycemic drugs; Z79.899 Other long term (current) drug therapy; Z85.118 Personal history of other malignant neoplasm of bronchus and lung; Z87.891 Personal history of nicotine dependence; Z90.2 Acquired absence of lung [part of]; Z60.2 Problems related to living alone; Z98.890 Other specified postprocedural states; Z88.5 Allergy status to narcotic agent; Z88.0 Allergy status to penicillin
CPT/HCPCS: 36415; 71045; 71046; 71275; 80048; 80053; 83605; 83615; 83735; 83880; 84484; 85025; 85379; 85610; 85730; 86140; 87040; 87635; 93005; 93970; 94760; 96361; 96365; 99285